=== PATIENT | male | born 1980 | race Caucasian/White ===

== ENCOUNTER 2024-10-18 13:50 | Outpatient (AMB) | payer OTHER, SELFPAY ==
--- OUTSIDE RECORDS SUMMARY | 2024-10-18 14:17 | XMS_ITS | Clinical Summary ---
Author Organization [facility] Address [address] [place] [address] Care Team Providers Care Audiology Technician Name Role Phone Koffi Hensley MD Primary Care Provider [phone] Allergies Active Allergy Reactions Criticality Noted Date Comments Cefaclor Other High 06/08/2002 Cephalosporins Other Low 06/25/2015 Kdc:Bee Venom+Hornet Venom+Phenol Other,Urticarial Rash High 02/28/2024 Prednisone Dizzy/Confused 01/09/2019 Varenicline Other 12/04/2023 Medications * This document contains information received from the source organization and may not represent a complete record from that organization. Ibuprofen (ADVIL,MOTRIN) 800 MG tabletIndications: Neck pain,Cervical radiculopathy Take one tablet (800 mg total) by mouth every 8 (eight) hours if needed for moderate pain. 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 Neurology [address] [facility] [address] [place] [phone] Aguila, Tabby, DO Vertigo (Primary Dx); Nonintractable headache, unspecified chronicity pattern, unspecified headache type; Right facial numbness 10/07/2024 6:15 PM EST Minor Procedure/Test [address] [place] [address] Sai Fish, RAJIV Cervical radiculopathy - REHAB PT (Primary Dx) 09/30/2024 4:45 PM EST Minor Procedure/Test [address] [place] [address] Sai Fish PTA Cervical radiculopathy - REHAB PT (Primary Dx) 09/12/2024 8:45 AM EST Minor Procedure/Test [facility] Orthopedic Surgery [address] [place] [phone] Reinaldo Chen MD Cervical radiculopathy (Primary Dx) 09/07/2024 Orders Only [address] [phone] Ada Spencer, PT 09/04/2024 3:45 PM EST Office Visit [address] [phone] Ada Spencer, PT Cervical radiculopathy - REHAB PT (Primary Dx) 07/24/2024 Orders Only [facility] Orthopedic Surgery [address] [place] [phone] Clem Burleson NP 07/23/2024 Orders Only [facility] Orthopedic Surgery [address] [place] [phone] Clem Burleson NP from Last 3 Months Immunizations Name Administration Dates Next Due COVID-19, mRNA (Moderna Pre Fall 2022) Monovalent, 100 mcg/0.5 ml or 50 mcg/0.25 ml dose 02/05/2021,12/25/2020 IPV 01/03/2005 Influenza,injectable,MDCK, Prsrv Fr,Quad 019,07/24/2018 Tdap 10/05/2021 Social History Tobacco Use Types Packs/Day Years Used Date Smoking Tobacco: Former Cigarettes Smokeless Tobacco: Never Tobacco Cessation:Counseling Given: Not Answered Comments:1 PACK A WEEK Alcohol Use Standard Drinks/Week Comments Not Asked 0 (1 standard drink = 0.6 oz pur e alcohol) Sex and Gender Information Value Date Recorded Sex Assigned at Not on file Legal Sex Male 9:43 PM EDT Gender Identity Not on file Sexual Orientation Not on file Last Filed Vital Signs Vital Sign Reading Time Taken Comments Blood Pressure 117/78 10/10/2024 2:57 PM EST Pulse 64 10/10/2024 2:57 PM EST Temperature 36.8 ??C (98.2 ??F) 09/12/2024 8:43 AM ES T Respiratory Rate - - Oxygen Saturation 99% 07/08/2020 5:21 PM EST Inhaled Oxygen Concentration - - Weight 79.8 kg (176 lb) 11/19/2014 8:06 AM EDT Height 180.3 cm (5' 11 ) 11/19/2014 8:06 AM EDT Body Mass Index 24.55 11/19/2014 8:06 AM EDT Plan of Treatment Upcoming Encounters Date Type Department Care Team (Late st Contact Info) Description 10/21/2024 4:15 PM EST Minor Procedure/Test [facility] [address] [place] [phone] Ada Spencer, PT [address] [place] [address] 2024 [facility] NO APPROVAL NEEDED Clem Burleson NP in [facility] ORTHO SURGERY 11/12/2024 7:45 PM EDT Radiology [facility]. Magnetic Resonance Imaging [address] [place] [address] NAVJOT [phone] AUTHDwaine 10/10/2024 Health Maintenance Due Date Last Done Comments Hep B (1 of 3 - 19+ 3-dose series) 01/06/1999 COVID-19 Vaccine (2023-2 5 season) 2024 02/05/2021, 12/25/2020 Influenza (#1) 2024 06/03/2019, 07/24/2018 Zoster (Shingrix) (1 of 2) 01/06/2030 DTaP/Tdap/Td (2 - Td or Tdap) 10/05/2031 10/05/2021 Eye/Retina Exam Discontinued 07/19/1994 Hepatitis C Screening Completed 09/19/2011 Chest Imaging Discontinued 06/25/2015, 01/31/2012, 03/13/2010 HPV Vaccine Aged Out No longer eligi ble based on patient's age to complete this topic Hep A Aged Out No longer eligi ble based on patient's age to complete this topic Hib Aged Out No longer eligi ble based on patient's age to complete this topic Meningococcal ACWY Aged Out No longer eligible based on patient's age to complete this topic Pneumococcal Aged Out No longer eligi ble based on patient's age to complete this topic Procedures * Due to [place] state law, this organization might not be sharing negative HIV tests. Procedure Name Priority Date/Time Associated Diagnosis Comments INJECTION(S) OF DIAGNOSTIC OR THERAPEUTIC SUSTANCES(S), CERVICAL OR THORACIC W/IMAGE Routine 09/12/2024 10:14 AM EST Cervical radiculopathy from Last 3 Months Insurance [facility] POS Care Teams Audiology Technician Relationship Specialty Start Date End Date Koffi Hensley MD [facility] [address] [place] [phone] PCP - General Family Medicine 07/08/20
--- OUTSIDE RECORDS SUMMARY | 2024-10-18 14:17 | XMS_ITS | Encounter Summary ---
Author Organization [facility] Address [address] [place] [address] Care Team Providers Care Heating Operators Engineer Name Role Phone Martinez Mendoza MD Primary Care Provider [phone] Reason for Referral * Consultation (Urgent) - Pending Review Specialty Diagnoses / Procedures Referred By Contbob t Referred To Contact Otolaryngology Diagnoses Impacted cerumen of right ear Dizziness Taylor Temple NP [address] [place] [address] Phone: tel: fax: Travis Hayes MD [address] [place] [address] Phone: tel: fax: Referral ID Status Reason Start Date Expiration Date Visits Requested Visits Authorized [id number] Pending Review Specialty Services Required 10/04/2024 04/05/2026 6 6 Reason for Visit * Reason Comments Vertigo Encounter Details Date Type Department Care Team (Late st Contact Info) Description 10/04/2024 11:30 AM EST Office Visit [address] Family Medicine Department [address] [place] [phone] Tayolr Temple NP [address] [place] [address] Impacted cerumen of right ear (Primary Dx); Dizziness Social History Tobacco Use Types Packs/Day Years Used Date Smoking Tobacco: Former Cigarettes 1 15 2 - 2017 Smokeless Tobacco: Never Comments:: Alcohol Use Standard Drinks/Week Comments Yes 6 (1 standard drink = 0.6 oz pur e alcohol) [facility] Utilities Answer Date Recorded In the past 12 months has th e electric, gas, oil, or water company threatened to shut off services in your home? No 10/04/2024 Hunger Vital Sign Answer Date Recorded Within the past 12 months, y ou worried that your food would run out before you got the money to buy more. Never true 10/04/19 25 Within the past 12 months, t he food you bought just didn't last and you didn't have money to get more. Never true 10/04/2024 Transportation Answer Date Recorded In the past 12 months, has l ack of reliable transportation kept you from medical appointments, meetings, work or from getting things needed for daily living? No 10/04/2024 Housing Answer Date Recorded Housing Risk Low 2 10/04/2024 Housing Risk Medium Not on file 10/04/2024 Housing Risk High Not on file 10/04/2024 What is your living situation today? [facility] 10/04/2024 Sex and Gender Information Value Date Recorded Sex Assigned at Male 12/04/2023 7:44 AM EDT Legal Sex Male 9:46 AM EDT Gender Identity Not on file Sexual Orientation Not on file documented as of this encounter Last Filed Vital Signs Vital Sign Reading Time Taken Comments Blood Pressure 122/78 10/04/2024 11:34 AM EST Pulse 65 10/04/2024 11:34 AM EST Temperature 36.4 ??C (97.5 ??F) 10/04/2024 11:[address] Respiratory Rate 20 10/04/2024 11:34 AM EST Oxygen Saturation 98% 10/04/2024 11:34 AM EST Inhaled Oxygen Concentration - - Weight 94.3 kg (208 lb) 10/04/2024 11:34 AM EST Height - - Body Mass Index 29.42 12/04/2023 7:50 AM EDT documented in this encounter Patient Instructions * Patient Instructions* Taylor Temple NP - 10/04/2024 12:09 PM EST DEBROX DROP FOR EAR WAX nightly for the weekend documented in this encounter Progress Notes * Taylor Temple NP - 10/04/2024 3:04 PM EST Progress Note Assessment & Plan Impacted cerumen of right ear The right ear is significantly occluded with cerumen, which may be contributing to his vertigo. He is advised to use ntqv-oto-twgffzh Debrox drops for approximately one week. An ENT consultation withDr. Hayes has been arranged for potential ear irrigation Orders: Ambulatory referral to ENT; Future Dizziness The vertigo could be related to the neck issues or the ear blockage. A prescription for meclizine has been provided, to be taken up to three times daily as needed for dizziness. He is informed that meclizine may induce drowsiness. If meclizine is not covered by his insurance, he can purchase Dramamine over the counter. If his condition acutely deteriorates over the weekend, he should seek immediate medical attention at the ER. Orders: Ambulatory referral to ENT; Future meclizine (ANTIVERT) 25 mg tablet; Take 1 tablet (25 mg total) by mouth 3 times a day as needed fordizziness. I have seen and evaluated Jose Pizarro and will be providing ongoing care and management for their medical conditions. Return for Annual physical. See orders, meds, patient instructions and follow up for plan. Pt aware and agreeable to plan of care. Follow up as scheduled and call with any questions or concerns. Portions of this note were created with voice recognition software. As such, please excuse any wordselection errors, misspellings, or grammatical errors. Efforts were made to proofread and correct this note prior to signing. If there are any questions, please don't hesitate to contact the office. The provider would like to use a new technology product that will automatically document your encounter based on a recording of your conversation today. This will allow them to spend more time focused on you. Is it okay with you if we record your conversation? Patient consents to be recorded by [employer] system. PROGRESS NOTE Patient ID: Jose is a 44 y.o. male HPI: History of Present Illness The patient is a 44-year-old male who presents today for concerns of right ear blockage and vertigo. He has been experiencing neck issues for the past decade, which were initially alleviated by a steroid injection. However, the pain recurred a few months ago, prompting him to seek consultation from a hr specialist, Dr. Clem Vides. They decided on another round of steroid injection in his spine at C4-C7. The pain was severe, radiating to his left side, causing numbness and a sensation jacob to pins and needles. A recent steroid injection at the C4-C7 level has resolved the numbness, but the neckpain has returned over the past few days. He reports no current numbness or tingling on his left side. He is right-handed and reports no fevers. He has been attending physical therapy sessions since last Monday, with four more sessions scheduled. His last session was this past Monday. He has an upcoming appointment with a neurologist, Dr. Tabby Kang, next week for his dizziness and a second opinionon his neck. Upon awakening yesterday, he experienced numbness on one side of his face and the back of his head,accompanied by a severe headache and vertigo, which has slightly improved today. The symptoms were so debilitating that he was unable to drive yesterday. He also reports episodes of dizziness that began two months ago, coinciding with the onset of his neck pain. He has not taken any medication for his vertigo or dizziness. He recalls an incident approximately 1.5 years ago when he was mowing the lawn and experienced severe neck muscle tightness, resulting in a fall and subsequent emergency roomvisit due to dizziness. He attempted to go to work yesterday despite the numbness in his head. He reports no previous episodes of vertigo as severe as the current one. He has been experiencing severe earaches on his right side during these dizzy spells. During his last physical examination, Dr. Hensley noted a small amount of earwax in his right ear. He reports no hearing loss in his right ear. He has had a couple of instances where he felt like he had an ear infection on that side, along with a sore throat. The following portions of the chart were reviewed this encounter and updated as appropriate: Tobacco Allergies Meds Problems Med Hx Surg Hx Fam Hx Current Medications (Taking) as of 10/04/2024 EPINEPHrine (EPIPEN JR) 0.15 mg/0.3 mL injection syringe EpiPen 2-Chong 0.3 MG/0.3ML Injection Solution Auto-injector INJECT 1 APPLICATION INTRAMUSCULARLY, NEEDED Quantity: 2; Refills: 0 SHIVANI COSTELLO MD; Started Active Review of Systems Constitutional: Negative for chills, fatigue and fever. Respiratory: Negative for shortness of breath. Cardiovascular: Negative for chest pain and chest pressure. Objective BP 122/78 (BP Location: Right arm, Patient Position: Sitting) Pulse 65 Temp 36.4 ??C (97.5 ??F)(Temporal) Resp 20 Wt 94.3 kg (208 lb) SpO2 98% BMI 29.42 kg/m?? Physical Exam Vitals reviewed. Constitutional: General: He is not in acute distress. Appearance: Normal appearance. He is not ill-appearing, toxic-appearing or diaphoretic. HENT: Right Ear: Ear canal and external ear normal. There is impacted cerumen. Left Ear: Tympanic membrane, ear canal and external ear normal. Nose: Nose normal. Mouth/Throat: Mouth: Mucous membranes are moist. Pharynx: Oropharynx is clear. Cardiovascular: Rate and Rhythm: Normal rate and regular rhythm. Heart sounds: Normal heart sounds. Pulmonary: Effort: Pulmonary effort is normal. Breath sounds: Normal breath sounds. Musculoskeletal: General: Normal range of motion. Cervical back: Normal range of motion. Comments: FROM of neck Neurological: General: No focal deficit present. Mental Status: He is alert and oriented to person, place, and time. Psychiatric: Mood and Affect: Mood normal. Behavior: Behavior normal. documented in this encounter Plan of Treatment Upcoming Encounters Date Type Department Care Team (Late st Contact Info) Description 11/05/2024 7:30 AM EDT Telehealth [address] Pulmonology [address] [place] [phone] Sylvester Stevenson MD [address] [place] [address] 12/17/2024 2:30 PM EDT Office Visit [facility] [address] [facility] Family Medicine Department [address] [place] [phone] Martinez Mendoza MD [address] [place] [address] 12/19/2024 2:30 PM EDT Office Visit [facility] D[facility]atology [facility] 4th Floor [address] [facility], [place] [address] Cloth Booker: Lisa Huff PA [address] [place] [address] Scheduled Referrals Name Type Priority Associated Diagnoses Order Schedule Ambulatory referral to ENT Outpatient Referral Routine Impacted cerumen of right ear Dizziness Expected: 10/04/2024, Expires: 04/03/2025 documented as of this encounter Visit Diagnoses Diagnosis Impacted cerumen of right ear- Primary Impacted cerumen Dizziness Dizziness and giddiness documented in this encounter Care Teams Heating Operators Engineer Relationship Specialty Start Date End Date Martinez Mendoza MD [address] [place] [address] PCP - General Family Medicine 10/04/24 documented as of this encounter
--- OUTSIDE RECORDS SUMMARY | 2024-10-18 14:17 | XMS_ITS | Encounter Summary ---
Author Organization [facility] Address [address] [place] [address] Care Team Providers Care Classics Teacher Name Role Phone Koffi Hensley MD Primary Care Provider [phone] Reason for Visit * Reason Onset Date Comments Physical Therapy 10/14/2024 Encounter Details Date Type Department Care Team (Late st Contact Info) Description 10/14/2024 4:45 PM EST Minor Procedure/Test [facility] [address] [place] [address] Sai Fish TELE TECH [address] [place] [address] Cervical radiculopathy - REHAB PT (Primary Dx) Social History Tobacco Use Types Packs/Day Years Used Date Smoking Tobacco: Former Cigarettes Smokeless Tobacco: Never Comments:1 PACK A WEEK Alcohol Use Standard Drinks/Week Comments Not Asked 0 (1 standard drink = 0.6 oz pur e alcohol) Sex and Gender Information Value Date Recorded Sex Assigned at Not on file Legal Sex Male 9:43 PM EDT Gender Identity Not on file Sexual Orientation Not on file documented as of this encounter Progress Notes * Sai Fish PTA - 10/14/2024 4:45 PM EST Jose Campo Juarez is a 44 y.o. male DOS: 10/14/2024 Visit # 4 For treatment of: ICD-10-CM 1. Cervical radiculopathy - REHAB PT M54.12 PRECAUTIONS / CONTRAINDICATIONS: standard Patient / Family goals: decrease pain and numbness Date of Onset: 2-3 months Rigger Chief not necessary for this visit. No exam or procedure involving the breast, genital or rectal area is anticipated. SUBJECTIVE: 2 identifier confirmed: YES Patient stated Neurologist and ENT were saying different things for my dizziness. The neck isn't bad. It's better than last week. It's a little stiff. No radiating numbness. Pain Scale: Now: 1-2/10 OBJECTIVE: Patient performed and/or progressed the following exercises: In sitting: - Chin tuck 5s hold x 10 - Cervical rotation iso vs self 5s hold x 6 each side - Cervical side bent iso vs self 5s hold x 6 each side In standing: - Open book along wall x 10 each side - Alt shoulder taps from plank position x 10 each side - Scap push up on wall x 10 - Rows vs blue band x 10, 2 sets - Shoulder ext vs blue band x 10, 2 sets - Lat pulldown vs blue band x 10, 2 sets - Hip hinge/squat lifting milk crate with 2 sand bags inside x 5 HEP: Access Code: [email or web address] URL: [email or web address]/ Exercises - Shoulder External Rotation and Scapular Retraction with Resistance - 1 x daily - 1-2 sets - 3-5 reps - 20 hold - green resistance band - Standing Isometric Cervical Extension and Bilateral Shoulder Flexion with Ball at Wall - 1-2 x daily - 1 sets - 10 reps - Row with Rotation - 1 x daily - 1-2 sets - 10 reps - green resistance band - Seated Thoracic Flexion and Rotation with Arms Crossed - 2 x daily - 1 sets - 10 reps - Shoulder extension with resistance - Neutral - 1 x daily - 1-2 sets - 3 reps - 20 hold - green resistance band Timed Code Treatment Minutes 38 Total Treatment Time Minutes 38 ASSESSMENT: Patient tolerated treatment well. Patient has improvement with symptoms compared to last week. Patient notes his dizziness symptoms are improving and that he mostly has tight neck muscles. PLAN: Continue to follow the plan of care per Primary PT. Therapeutic Exercise L median nerve glides Stretching - pecs Deep cervical flexor strengthening - likely need to start with isometrics Mid back strengthening for posture L rotator cuff strengthening/ scapular strengthening Patient Education/ Self - Care HEP Posture/ body mechanics, work space ergonomics Driving Avoiding excessive overhead work Keeping neutral spine with tasks at work Primary PT: Ada Spencer, PT, DPT License # [id number] Sai Fish PTA [place] License #[id number] documented in this encounter Plan of Treatment Upcoming Encounters Date Type Department Care Team (Late st Contact Info) Description 10/21/2024 4:15 PM EST Minor Procedure/Test [facility] [address] [place] [phone] Ada Spencer, PT [address] [place] [address] 2024 [facility] NO APPROVAL NEEDED Clem Burleson NP in [facility] ORTHO SURGERY 11/12/2024 7:45 PM EDT Radiology [facility] [address] [place] [address] NAVJOT [phone] AUTHDwaine 10/10/2024 documented as of this encounter Visit Diagnoses Diagnosis Cervical radiculopathy - REHAB PT- Primary Brachial neuritis or radiculitis nos documented in this encounter Care Teams Classics Teacher Relationship Specialty Start Date End Date Koffi Hensley MD [facility] [address] [place] [phone] PCP - General Family Medicine 07/08/20 documented as of this encounter
--- OUTSIDE RECORDS SUMMARY | 2024-10-18 14:17 | XMS_ITS | Encounter Summary ---
Author Organization [facility] Address [address] [place] [address] Care Team Providers Care Train Brakeman Name Role Phone Martinez Mendoza MD Primary Care Provider Reason for Visit * Reason Onset Date Comments Vertigo 10/04/2024 Encounter Details Date Type Department Care Team (Late st Contact Info) Description 10/04/[address] Family Medicine Department [address] [place] [phone] Koffi Hensley MD [address] [place] [address] Vertigo Social History Tobacco Use Types Packs/Day Years Used Date Smoking Tobacco: Former Cigarettes 1 15 - 2017 Smokeless Tobacco: Never Comments:: Alcohol Use Standard Drinks/Week Comments Yes 6 (1 standard drink = 0.6 oz pur e alcohol) [facility] Utilities Answer Date Recorded In the past 12 months has th e [employer], gas, oil, or water [employer] threatened to shut off services in your [...] on file documented as of this encounter Miscellaneous Notes * Telephone Encounter - Jana Latif LPN - 10/04/2024 10:04 AM EST Contacted pt offered apt today at 11:30 pt agreeable * Telephone Encounter - Carla Mullins - 10/04/2024 9:56 AM EST Pt lmtr [facility] @ 9;44 stating he has very bad vertigo and states he has a blockage in his right ear documented in this encounter Plan of Treatment Upcoming Encounters Date Type Department Care Team (Late st Contact Info) Description 11/05/2024 7:30 AM EDT Telehealth [facility] [address] [place] Pulmonology [address] [address] Sylvester Stevenson MD [address] [address] 12/17/2024 2:30 PM EDT Office Visit [address] Family Medicine Department [address] [place] [phone] Martinez Mendoza MD [address] [place] [address] 12/19/2024 2:30 PM EDT Office Visit [facility] Dermatology Clinic 4th Floor [address] [facility], [place] [address] Stitcher Tape Controlled Machine: Lisa Huff PA [address] [place] [address] documented as of this encounter Visit Diagnoses Not on filedocumented in this encounter Care Teams Train Brakeman Relationship Specialty Start Date End Date Martinez Mendoza MD [address] [place] [address] PCP - General Family Medicine 10/04/24 documented as of this encounter
--- OUTSIDE RECORDS SUMMARY | 2024-10-18 14:17 | XMS_ITS | Encounter Summary ---
Author Organization [facility] Address [address] [place] [address] Care Team Providers Care Residential Appliance Repair Technician Name Role Phone Martinez Mendoza MD Primary Care Provider Encounter Details Date Type Department Care Team (Late st Contact Info) Description 10/04/2024 Orders Only [address] Family Medicine Department [address] [place] [phone] Taylor Temple NP [address] [place] [address] Healthcare maintenance Social History Tobacco Use Types Packs/Day Years Used Date Smoking Tobacco: Former Cigarettes 1 15 2017 Smokeless Tobacco: Never Comments:: Alcohol Use Standard Drinks/Week Comments Yes 6 (1 standard drink = 0.6 oz pur e alcohol) [facility] Utilities Answer Date Recorded In the past 12 months has e [employer], gas, oil, or water [employer] threatened to shut off services in your [...] on file documented as of this encounter Plan of Treatment Upcoming Encounters Date Type Department Care Team (Late st Contact Info) Description 11/05/2024 7:30 AM EDT Telehealth [facility] [address] [place] Pul[facility] 85 [facility] [address] [place] [address] Sylvester Stevenson MD [address] [address] 12/17/2024 2:30 PM EDT Office Visit [address] Family Medicine Department [address] [place] [phone] Martinez Mendoza MD [address] [place] [address] 12/19/2024 2:30 PM EDT Office Visit [facility] 4th Floor [address] [facility], [place] [address] Cost Reduction Engineer: Lisa Huff PA [address] [place] [address] documented as of this encounter Results * Due to [place] state law, this organization might not be sharing negative HIV tests. * (ABNORMAL) Vitamin D, 25-Hydroxy, Total, Immunoassay (10/10/2024 1:36 PM EST) Vitamin D 25-OH 19.90(L) 30.00 - 80.00 ng/mL 10/10/2024 7:35 PM EST [facility] Blood Structure of peripheral vein / Unknown Venipuncture / Unknown 10/10/2024 1:36 PM EST 10/10/2024 1:36 PM EST [facility] HUMAN RESOURCES TRAINING MANAGER LAB BLOOD ORDERABLES Final R esult Performing Organization Address [facility] Co de Phone Number [facility] [address] [address], [place] [phone] * TSH Reflex Free T4 (10/10/2024 1:36 PM EST) TSH 2.610 0.270 - 4.200 uIU/mL 10/10/2024 7:24 PM EST [facility] Blood Structure of peripheral vein / Unknown Venipuncture / Unknown 10/10/2024 1:36 PM EST 10/10/2024 1:36 PM EST [facility] HUMAN RESOURCES TRAINING MANAGER LAB BLOOD ORDERABLES Final R esult Performing Organization Address City/[facility] Co de Phone Number [facility] [address] [address], [place] [phone] * CBC Auto Differential (10/10/2024 1:36 PM EST) WBC 5.1 4.8 - 10.8 10*3/uL 10/10/2024 6:54 PM EST [facility] RBC 4.85 4.70 - 6.10 10*6/uL 10/10/2024 6:54 PM EST [facility] Hemoglobin 15.2 13.7 - 16.5 g/dL 10/10/2024 6:54 PM EST [facility] Hematocrit 43.3 40.5 - 48.5 % 10/10/2024 6:54 PM EST [facility] MCV 89.3 80.0 - 94.0 fL 10/10/2024 6:54 PM EST [facility] MCH 31.3 26.0 - 34.0 pg 10/10/2024 6:54 PM EST [facility] MCHC 35.1 31.0 - 36.0 g/dL 10/10/2024 6:54 PM EST [facility] RDW 12.0 12.0 - 15.0 % 10/10/2024 6:54 PM EST [facility] RDW Standard Deviation 39.2 35.1 - 43.9 fL 10/10/2024 6:54 PM EST [facility] Platelets 277 140 - 440 10*3/uL 10/10/2024 6:54 PM [facility] MPV 10.6 9.4 - 12.4 fL 10/10/2024 6:54 PM EST [facility] Neutrophil % 50.2 50.0 - 75.0 % 10/10/2024 6:54 PM EST [facility] Immature Grans % 0.2 0.0 - 0.9 % 10/10/2024 6:54 PM EST [facility] Lymphocyte % 34.8 20.0 - 44.0 % 10/10/2024 6:54 PM EST [facility] Monocyte % 11.5 0.0 - 14.0 % 10/10/2024 6:54 PM EST [facility] Eosinophil % 2.7 0.0 - 5.0 % 10/10/2024 6:54 PM EST [facility] Basophil % 0.6 0.0 - 2.0 % 10/10/2024 6:54 PM EST [facility] Neutrophil # 2.56 1.80 - 7.70 10*3/uL 10/10/2024 6:54 PM EST [facility] Immature Grans # <0.03 0.00 - 0.03 10*3/uL 10/10/2024 6:54 PM EST [facility] Lymphocyte # 1.80 1.00 - 4.75 10*3/uL 10/10/2024 6:54 PM EST [facility] Monocyte # 0.60 0.00 - 0.60 10*3/uL 10/10/2024 6:54 PM EST [facility] Eosinophil # 0.10 0.00 - 0.80 10*3/uL 10/10/2024 6:54 PM EST [facility] Basophil # <0.03 0.00 - 0.20 10*3/uL 10/10/2024 6:54 PM EST [facility] nRBC % 0.0 0 - 0 /100 WBCs 10/10/2024 6:54 PM EST [facility] nRBC # <0.01 0.00 - 0.13 10*3/uL 10/10/2024 6:54 PM EST [facility] Blood Structure of peripheral vein / Unknown Venipuncture / Unknown 10/10/2024 1:36 PM EST 10/10/2024 1:36 PM EST [facility] LAB BLOOD ORDERABLES [facility] Performing Organization Address [facility] de Phone Number [facility] [address] [address], [place] [phone] * Hemoglobin A1c (10/10/2024 1:36 PM EST) Pathologist [facility] Hemoglobin A1c 5.6 4.0 - 5.7 % 10/10/2024 7:13 PM EST [facility] Estimated Average Glucose 114 mg/dL 10/10/2024 7:13 PM EST [facility] Blood Structure of peripheral vein / Unknown Venipuncture / Unknown 10/10/2024 1:36 PM EST 10/10/2024 1:36 PM EST [facility] LAB BLOOD ORDERABLES Final R [facility] Performing Organization Address City/[facility] Co de Phone Number [facility] [address] [address], [place] [phone] * Basic Metabolic Panel (10/10/2024 1:36 PM EST) Pathologist [facility] NA 141 136 - 145 mmol/L 10/10/2024 7:24 PM EST [facility] K 4.7 3.5 - 5.1 mmol/L 10/10/2024 7:24 PM EST [facility] Cl 103 98 - 109 mmol/L 10/10/2024 7:24 PM EST [facility] CO2 29 22 - 32 mmol/L 10/10/2024 7:24 PM EST [facility] BUN 17 6 - 20 mg/dL 10/10/2024 7:24 PM EST [facility] Creatinine 1.02 0.50 - 1.12 mg/dL 10/10/2024 7:24 PM EST [facility] Glucose 81 60 - 99 mg/dL 10/10/2024 7:24 PM EST [facility] Calcium 9.4 8.4 - 10.4 mg/dL 10/10/2024 7:24 PM EST [facility] Anion Gap 14 >=0 10/10/2024 7:24 PM EST [facility] eGFR >90 >=60 mL/min/1. 73m2 10/10/2024 7:24 PM EST [facility] Comment:The estimated glomer ular filtration rate (eGFR) is calculated using a new formula developed by the NKF-ASN task force to eliminate race-based correction factors. The new formula uses serum/plasma creatinine, age, and gender to determine eGFR. A value below 60mls/min might indicate kidney disease and will be flagged. For additional information, see Rosado et al, Am J Kidney Dis. 2021;79(2):268- 288, A Unifying Approach for GFR estimation: Recommendations of the NKF-ASN Task Force on Reassessing the Inclusion of Race in Diagnosing Kidney Disease . Blood Structure of peripheral vein / Unknown Venipuncture / Unknown 10/10/2024 1:36 PM EST 10/10/2024 1:36 PM EST us Taylor Temple HUMAN RESOURCES TRAINING MANAGER LAB BLOOD ORDERABLES Final R esult [facility] [address] [place] [address], [place] [phone] * Hepatic Function Panel (10/10/2024 1:36 PM EST) Total Protein 7.1 6.6 - 8.7 g/dL 10/10/2024 7:24 PM EST [facility] Albumin 4.5 3.5 - 5.0 g/dL 10/10/2024 7:24 PM EST [facility] Globulin, Total 2.6 2.1 - 4.2 g/dL 10/10/2024 7:24 PM EST [facility] Bilirubin, Total 0.4 0.2 - 1.2 mg/dL 10/10/2024 7:24 PM EST [facility] Bilirubin, Direct 0.2 <=0.3 mg/dL 10/10/2024 7:24 PM EST [facility] Alkaline Phosphatase 76 40 - 129 U/L 10/10/2024 7:24 PM EST [facility] AST 29 0 - 40 U/L 10/10/2024 7:24 PM EST [facility] ALT 29 <=41 U/L 10/10/2024 7:24 PM EST [facility] Bilirubin, Indirect 0.20 <=0.70 mg/dL 10/10/2024 7:24 PM EST [facility] A/G Ratio 1.7 1.5 - 3.0 10/10/2024 7:24 PM EST [facility] Blood Structure of peripheral vein / Unknown Venipuncture / Unknown 10/10/2024 1:36 PM EST 10/10/2024 1:36 PM EST Taylor Temple HUMAN RESOURCES TRAINING MANAGER LAB BLOOD ORDERABLES Final R esult [facility] [address] [place] [address], [place] [phone] * Lipid Panel w/Reflex to Direct LDL (10/10/2024 1:36 PM EST) Pathologist [facility] Cholesterol 194 mg/dL 10/10/2024 7:24 PM EST [facility] Comment: DESIRABLE: <200 mg/dL BORDERLINE HIGH: 200-239 mg/dL HIGH: >239 mg/dL Triglycerides 233 mg/dL 10/10/2024 7:24 PM EST [facility] Comment: NORMAL: <150 mg/dL BORDERLINE HIGH: 150-199 mg/dL HIGH: 200-499 mg/dL VERY HIGH >499 mg/dL Cholesterol, HDL 44 mg/dL 10/10/19 7:24 PM EST [facility] Comment: DESIRABLE: >60 mg/dL BORDERLINE: 40-59 mg/dL UNDESIRABLE: <40 mg/dL LDL Cholesterol 103 mg/dL 7:24 PM EST [facility] Comment: OPTIMAL: <100 mg/dL NEAR OPTIMAL: <130 mg/dL BORDERLINE HIGH: 130-159 mg/dL HIGH: 160-189 mg/dL VERY HIGH: >189 mg/dL VLDL 46.6 mg/dL 10/10/2024 7:24 PM EST [facility] Cholesterol/HDL Ratio 4.4 10/10/2024 7:24 PM EST [facility] Blood Structure of peripheral vein / Unknown Venipuncture / Unknown 10/10/2024 1:36 PM EST 10/10/2024 1:36 PM EST us [facility] HUMAN RESOURCES TRAINING MANAGER LAB BLOOD ORDERABLES Final R esult Performing Organization Address City/State/[facility] Co de Phone Number [facility] [address] [address], documented in this encounter Visit Diagnoses Diagnosis Healthcare maintenance documented in this encounter Care Teams Residential Appliance Repair Technician Relationship Specialty Start Date End Date Martinez Mendoza MD [address] [place] [address] PCP - General Family Medicine 10/04/24 documented as of this encounter
--- OUTSIDE RECORDS SUMMARY | 2024-10-18 14:17 | XMS_ITS | Encounter Summary ---
Author Organization [facility] Address [address] [place] [address] Care Team Providers Care Credit Collection Specialist Name Role Phone Martinez Mendoza MD Primary Care Provider Encounter Details Date Type Department Care Team (Late st Contact Info) Description 10/07/2024 Retrevohart Message [place] [id number] [address] [facility] Family Medicine Department [address] [place] [phone] Taylor Temple NP [address] [place] [address] Ent Social History Tobacco Use Types Packs/Day Years Used Date Smoking Tobacco: Former Cigarettes 1 15 2017 Smokeless Tobacco: Never Comments:: Alcohol Use Standard Drinks/Week Comments Yes 6 (1 standard drink = 0.6 oz pur e alcohol) [facility] Utilities Answer Date Recorded In the past 12 months has e [employer], gas, oil, or water [employer] threatened to shut off services in your [...] Info) Description 11/05/2024 7:30 AM EDT Telehealth [facility] [address] [place] [facility] 85 [facility] [address] [place] [address] Sylvester Stevenson MD [address] [address] 12/17/2024 2:30 PM EDT Office Visit [facility] 61 [facility] Family Medicine Department [address] [place] [phone] Martinez Mendoza MD [address] [place] [address] 12/19/2024 2:30 PM EDT Office Visit [facility] 4th Floor [address] [facility], [place] [address] Grant Administrator: Lisa Huff PA [address] [place] [address] documented as of this encounter Visit Diagnoses Not on filedocumented in this encounter Care Teams Credit Collection Specialist Relationship Specialty Start Date End Date Martinez Mendoza MD [address] [place] [address] PCP - General Family Medicine 10/04/24 documented as of this encounter
--- OUTSIDE RECORDS SUMMARY | 2024-10-18 14:17 | XMS_ITS | Encounter Summary ---
Author Organization [facility] Address [address] [place] [address] Care Team Providers Care Brand Strategy Manager Name Role Phone Martinez Mendoza MD Primary Care Provider [phone] Encounter Details Date Type Department Care Team (Late st Contact Info) Description 10/10/2024 1:35 PM EST Lab [facility] Site Department [address] [place] [address] Healthcare maintenance Social History Tobacco Use Types Packs/Day Years Used Date Smoking Tobacco: Former Cigarettes 1 15 2 - 2018 Smokeless Tobacco: Never Comments:: Alcohol Use Standard Drinks/Week Comments Yes 6 (1 standard drink = 0.6 oz pur e alcohol) [facility] Utilities Answer Date Recorded In the past [...] Info) Description 11/05/2024 7:30 AM EDT Telehealth [facility] [address] [place] [address] 85 [facility] [address] [place] [address] Sylvester Stevenson MD [address] [address] 12/17/2024 2:30 PM EDT Office Visit [address] Family Medicine Department [address] [place] [phone] Martinez Mendoza MD [address] [place] [address] 12/19/2024 2:30 PM EDT Office Visit [facility] 4th Floor 281 [facility], [place] [address] Manufacturing Engineer Assembly: Lisa Huff PA [address] [place] [address] documented as of this encounter Procedures * Due to [place] state law, this organization might not be sharing negative HIV tests. Procedure Name Priority Date/Time Associated Diagnosis Comments TSH REFLEX FREE T4 Routine 10/10/2024 1: 36 PM EST Healthcare maintenance LIPID PANEL W/REFLEX TO DIRECT LDL Routine 10/10/2024 1:36 PM EST Healthcare maintenance CBC AUTO DIFFERENTIAL Routine 10/10/2024 1:36 PM EST Healthcare maintenance VITAMIN D, 25-HYDROXY, TOTAL, IMMUNOASSAY Routine 10/10/2024 1:36 PM EST Healthcare maintenance HEMOGLOBIN A1C Routine 10/10/2024 1:36 PM EST Healthcare maintenance HEPATIC FUNCTION PANEL Routine 10/10/2024 1:36 PM EST Healthcare maintenance BASIC METABOLIC PANEL Routine 10/10/2024 1:36 PM EST Healthcare maintenance documented in this encounter Results * Due to [place] state law, this organization might not be sharing negative HIV tests. * (ABNORMAL) Vitamin D, 25-Hydroxy, Total, Immunoassay (10/10/2024 1:36 PM EST) Vitamin D 25-OH 19.90(L) 30.00 - 80.00 ng/mL 10/10/2024 7:35 PM EST [facility] Blood Structure of peripheral vein / Unknown Venipuncture / Unknown 10/10/2024 1:36 PM EST 10/10/2024 1:36 PM EST [facility] GREASE REMOVER LAB BLOOD ORDERABLES Final R esult Performing Organization Address City/[facility]/ZIP Co de Phone Number [facility] [address] [place] [address], [place] [phone] * TSH Reflex Free T4 (10/10/2024 1:36 PM EST) TSH 2.610 0.270 - 4.200 uIU/mL 10/10/2024 7:24 PM EST [facility] Blood Structure of peripheral vein / Unknown Venipuncture / Unknown 10/10/2024 1:36 PM EST 10/10/2024 1:36 PM EST [facility] GREASE [employer]OVER LAB BLOOD ORDERABLES Final R esult Performing Organization Address City/[facility]/ZIP Co de Phone Number [facility] [address] [place] [address], [place] [phone] * CBC Auto Differential (10/10/2024 1:36 PM EST) [facility] WBC 5.1 4.8 - 10.8 10*3/uL 10/10/2024 6:54 PM EST [facility] RBC 4.85 4.70 - 6.10 10*6/uL 10/10/2024 6:54 PM EST [facility] Hemoglobin 15.2 13.7 - 16.5 g/dL 10/10/2024 6:54 PM EST [facility] Hematocrit 43.3 40.5 - 48.5 % 10/10/2024 6:54 PM EST [facility] MCV 89.3 80.0 - 94.0 fL 10/10/2024 6:54 PM EST [facility] MCH 31.3 26.0 - 34.0 pg 10/10/2024 6:54 PM EST [facility] MCHC 35.1 31.0 - 36.0 g/dL 10/10/2024 6:54 PM EST [facility] RDW 12.0 12.0 - 15.0 % 10/10/2024 6:54 PM EST [facility] RDW Standard Deviation 39.2 35.1 - 43.9 fL 10/10/2024 6:54 PM EST [facility] Platelets 277 140 - 440 10*3/uL 10/10/2024 6:54 PM EST [facility] MPV 10.6 9.4 - 12.4 fL 10/10/2024 6:54 PM EST [facility] Neutrophil % 50.2 50.0 - 75.0 % 10/10/2024 6:54 PM EST [facility] Immature Grans % 0.2 0.0 - 0.9 % 10/10/2024 6:54 PM EST [facility] Lymphocyte % 34.8 20.0 - 44.0 % 10/10/2024 6:54 PM EST [facility] Monocyte % 11.5 0.0 - 14.0 % 10/10/2024 6:54 PM EST [facility] Eosinophil % 2.7 0.0 - 5.0 % 10/10/2024 6:54 PM EST [facility] Basophil % 0.6 0.0 - 2.0 % 10/10/2024 6:54 PM EST [facility] Neutrophil # 2.56 1.80 - 7.70 10*3/uL 10/10/2024 6:54 PM EST [facility] Immature Grans # <0.03 0.00 - 0.03 10*3/uL 10/10/2024 6:54 PM EST [facility] Lymphocyte # 1.80 1.00 - 4.75 10*3/uL 10/10/2024 6:54 PM EST [facility] Monocyte # 0.60 0.00 - 0.60 10*3/uL 10/10/2024 6:54 PM EST [facility] Eosinophil # 0.10 0.00 - 0.80 10*3/uL 10/10/2024 6:54 PM EST [facility] Basophil # <0.03 0.00 - 0.20 10*3/uL 10/10/2024 6:54 PM EST [facility] nRBC % 0.0 0 - 0 /100 WBCs 10/10/2024 6:54 PM EST [facility] nRBC # <0.01 0.00 - 0.13 10*3/uL 10/10/2024 6:54 PM EST [facility] Blood Structure of peripheral vein / Unknown Venipuncture / Unknown 10/10/2024 1:36 PM EST 10/10/2024 1:36 PM EST us Taylor Temple [employer] LAB BLOOD ORDERABLES Final R esult [facility] [address] [address], * Hemoglobin A1c (10/10/2024 1:36 PM EST) Hemoglobin A1c 5.6 4.0 - 5.7 % 10/10/2024 7:13 PM EST [facility] Estimated Average Glucose 114 mg/dL 10/10/2024 7:13 PM EST [facility] Blood Structure of peripheral vein / Unknown Venipuncture / Unknown 10/10/2024 1:36 PM EST 10/10/2024 1:36 PM EST [facility] BLOOD ORDERABLES Final R esult [facility] [address] [facility] [address] [place] [address], * Basic Metabolic Panel (10/10/2024 1:36 PM EST) NA 141 136 - 145 mmol/L 10/10/2024 7:24 PM EST [facility] K 4.7 3.5 - 5.1 mmol/L 10/10/2024 7:24 PM EST [facility] Cl 103 98 - 109 mmol/L 10/10/2024 7:24 PM EST [facility] CO2 29 22 - 32 mmol/L 10/10/2024 7:24 PM EST [facility] BUN 17 6 - 20 mg/dL 10/10/2024 7:24 PM EST [facility] Creatinine 1.02 0.50 - 1.12 mg/dL 10/10/2024 7:24 PM EST [facility] Glucose 81 60 - 99 mg/dL 10/10/2024 7:24 PM EST [facility] Calcium 9.4 8.4 - 10.4 mg/dL 10/10/2024 7:24 PM EST [facility] Anion Gap 14 >=0 10/10/2024 7:24 PM EST [facility] eGFR >90 >=60 mL/min/1. 73m2 10/10/2024 7:24 PM EST [facility] Comment:The estimated glomer ular filtration rate (eGFR) is calculated using a new formula developed by the NKF-ASN task force to eliminate race-based correction factors. The new formula uses serum/plasma creatinine, age, and gender to determine eGFR. A value below 60mls/min might indicate kidney disease and will be flagged. For additional information, see Ashlee et al, Am J Kidney Dis. 2021;79(2):268- 288, A Unifying Approach for GFR estimation: Recommendations of the NKF-ASN Task Force on Reassessing the Inclusion of Race in Diagnosing Kidney Disease . Blood Structure of peripheral vein / Unknown Venipuncture / Unknown 10/10/2024 1:36 PM EST 10/10/2024 1:36 PM EST us Taylor Temple [employer] LAB BLOOD ORDERABLES Final R esult [facility] [address] [place] [address] [address] [place] [address], [place] [phone] * Hepatic Function Panel (10/10/2024 1:36 PM EST) Total Protein 7.1 6.6 - 8.7 g/dL 10/10/2024 7:24 PM EST [facility] Albumin 4.5 3.5 - 5.0 g/dL 10/10/2024 7:24 PM EST [facility] Globulin, Total 2.6 2.1 - 4.2 g/dL 10/10/2024 7:24 PM EST [facility] Bilirubin, Total 0.4 0.2 - 1.2 mg/dL 10/10/2024 7:24 PM EST [facility] Bilirubin, Direct 0.2 <=0.3 mg/dL 10/10/2024 7:24 PM EST [facility] Alkaline Phosphatase 76 40 - 129 U/L 10/10/2024 7:24 PM EST [facility] AST 29 0 - 40 U/L 10/10/2024 7:24 PM EST [facility] ALT 29 <=41 U/L 10/10/2024 7:24 PM EST [facility] Bilirubin, Indirect 0.20 <=0.70 mg/dL 10/10/2024 7:24 PM EST [facility] A/G Ratio 1.7 1.5 - 3.0 10/10/2024 7:24 PM EST [facility] Blood Structure of peripheral vein / Unknown Venipuncture / Unknown 10/10/2024 1:36 PM EST 10/10/2024 1:36 PM EST Taylor Temple [employer] LAB BLOOD ORDERABLES Final R esult [facility] [address] [facility] [address] [place] [address], [place] [phone] * Lipid Panel w/Reflex to Direct LDL (10/10/2024 1:36 PM EST) Cholesterol 194 mg/dL 10/10/2024 7:24 PM EST [facility] Comment: DESIRABLE: <200 mg/dL BORDERLINE HIGH: 200-239 mg/dL HIGH: >239 mg/dL Triglycerides 233 mg/dL 10/10/2024 7:24 PM EST [facility] Comment: NORMAL: <150 mg/dL BORDERLINE HIGH: 150-199 mg/dL HIGH: 200-499 mg/dL VERY HIGH >499 mg/dL Cholesterol, HDL 44 mg/dL 10/10/19 7:24 PM EST [facility] Comment: DESIRABLE: >60 mg/dL BORDERLINE: 40-59 mg/dL UNDESIRABLE: <40 mg/dL LDL Cholesterol 103 mg/dL 7:24 PM EST [facility] Comment: OPTIMAL: <100 mg/dL NEAR OPTIMAL: <130 mg/dL BORDERLINE HIGH: 130-159 mg/dL HIGH: 160-189 mg/dL VERY HIGH: >189 mg/dL VLDL 46.6 mg/dL 10/10/2024 7:24 PM EST [facility] Cholesterol/HDL Ratio 4.4 10/10/2024 7:24 PM EST [facility] Blood Structure of peripheral vein / Unknown Venipuncture / Unknown 10/10/2024 1:36 PM EST 10/10/2024 1:36 PM EST us Taylor Temple [employer]OVER LAB BLOOD ORDERABLES Final R esult [facility] [address] [address], documented in this encounter Visit Diagnoses Diagnosis Healthcare maintenance documented in this encounter Care Teams Brand Strategy Manager Relationship Specialty Start Date End Date Martinez Mendoza MD [address] [place] [address] PCP - General Family Medicine 10/04/24 documented as of this encounter
--- OUTSIDE RECORDS SUMMARY | 2024-10-18 14:17 | XMS_ITS | Encounter Summary ---
Author Organization [facility] Address [address] [place] [address] Care Team Providers Care Wheel Alignment Mechanic Name Role Phone Martinez Mendoza MD Primary Care Provider Reason for Visit * Reason Comments Med Change Request Encounter Details Date Type Department Care Team (Late st Contact Info) Description 10/04/2024 Refill [facility] [address] [facility] Family Medicine Department [address] [place] [address] Taylor Temple NP [address] [place] [address] Dizziness Social History Tobacco Use Types Packs/Day Years Used Date Smoking Tobacco: Former Cigarettes 1 2017 Smokeless Tobacco: Never Comments:: Alcohol Use Standard Drinks/Week Comments Yes 6 (1 standard drink = 0.6 oz pur e alcohol) [facility] Utilities Answer Date Recorded In the past 12 months has [employer], gas, oil, or water [employer] threatened to shut off services in your [...] encounter Miscellaneous Notes * Telephone Encounter - Claire Isidro MA - 10/04/2024 3:36 PM EST Please advise if medication can be changed. documented in this encounter Plan of Treatment Upcoming Encounters Date Type Department Care Team (Late st Contact Info) Description 11/05/2024 7:30 AM EDT Telehealth [facility] [address] [facility] [address] [address] Sylvester Stevenson MD [address] [address] 12/17/2024 2:30 PM EDT Office Visit [address] Family Medicine Department [address] [place] [phone] Martinez Mendoza MD [address] [place] [address] 12/19/2024 2:30 PM EDT Office Visit [facility] 4th Floor [address] [facility], [place] [phone] Noc Technician: Lisa Huff PA [address] [place] [address] documented as of this encounter Visit Diagnoses Diagnosis Dizziness Dizziness and giddiness documented in this encounter Care Teams Wheel Alignment Mechanic Relationship Specialty Start Date End Date Martinez Mendoza MD [address] [place] [phone] PCP - General Family Medicine 10/04/24 documented as of this encounter
--- OUTSIDE RECORDS SUMMARY | 2024-10-18 14:17 | XMS_ITS | Encounter Summary ---
Author Organization [facility] Address [address] [place] [address] Care Team Providers Care Rn Teacher Name Role Phone Martinez Mendoza MD Primary Care Provider [phone] Reason for Visit * Reason Onset Date Comments Results 10/11/2024 Encounter Details Date Type Department Care Team (Late st Contact Info) Description 10/11/[address] Family Medicine Department [address] [place] [phone] Martinez Mendoza MD [address] [place] [address] Results Social History Tobacco Use Types Packs/Day Years Used Date Smoking Tobacco: Former Cigarettes 1 15 - 2017 Smokeless Tobacco: Never Comments:: Alcohol Use Standard Drinks/Week Comments Yes 6 (1 standard drink = 0.6 oz pur e alcohol) [facility] Utilities Answer Date Recorded In the past 12 months has e [employer], gas, oil, or water [employer] threatened to shut off services in your [...] encounter Miscellaneous Notes * Telephone Encounter - Alma Rosa Carrasquillo RICK - 10/11/2024 8:57 AM EST Called pt back it was about result. Let him know result message and pt agreeable to nate vit d * Telephone Encounter - Carla Mullins - 10/11/2024 8:26 AM EST Pt lmtr [facility] @ 8:24 is returning office call and would like a cb documented in this encounter Plan of Treatment Upcoming Encounters Date Type Department Care Team (Late st Contact Info) Description 11/05/2024 7:30 AM EDT Telehealth [facility] 85 [facility] [address] [address] Sylvester Stevenson MD [address] [address] 12/17/2024 2:30 PM EDT Office Visit [address] Family Medicine Department [address] [place] [phone] Martinez Mendoza MD [address] [place] [address] 12/19/2024 2:30 PM EDT Office Visit [facility] 4th Floor [address] [facility] [place] [address] Fence Installer Foreman: Lisa Huff PA [address] [place] [address] documented as of this encounter Visit Diagnoses Not on filedocumented in this encounter Care Teams Rn Teacher Relationship Specialty Start Date End Date Martinez Mendoza MD [address] [place] [phone] PCP - General Family Medicine 10/04/24 documented as of this encounter
--- OUTSIDE RECORDS SUMMARY | 2024-10-18 14:17 | XMS_ITS | Encounter Summary ---
Author Organization [facility] Address [address] [place] [address] Care Team Providers Care Picking Supervisor Name Role Phone Martinez Mendoza MD Primary Care Provider Encounter Details Date Type Department Care Team (Late st Contact Info) Description 10/10/2024 Results Follow-Up [address] Family Medicine Department [address] [place] [address] Taylor Temple NP [address] [place] [address] Social History Tobacco Use Types Packs/Day Years Used Date Smoking Tobacco: Former Cigarettes 1 15 2017 Smokeless Tobacco: Never Comments:: Alcohol Use Standard Drinks/Week Comments Yes 6 (1 standard drink = 0.6 oz pur e alcohol) [facility] Utilities Answer Date Recorded In the past 12 months has e [employer], gas, oil, or water [employer] threatened to shut off services in your [...] as of this encounter Miscellaneous Notes * Result Encounter Note - Alma Rosa Carrasquillo MA - 10/11/2024 9:09 AM EST I called patient. Pt aware of results and agreeable to plan. * Result Encounter Note - Claire Isidro MA - 10/11/2024 8:08 AM EST [facility] documented in this encounter Plan of Treatment Upcoming Encounters Date Type Department Care Team (Late st Contact Info) Description 11/05/2024 7:30 AM EDT Telehealth [facility] [address] [facility] [address] [address] Sylvester Stevenson MD [address] [address] 12/17/2024 2:30 PM EDT Office Visit [address] Family Medicine Department [address] [place] [phone] Martinez Mendoza MD [address] [place] [address] 12/19/2024 2:30 PM EDT Office Visit [facility] 4th Floor [address] [facility], [place] [address] Building Construction Foreman: Lisa Huff PA [address] [place] [address] documented as of this encounter Visit Diagnoses Not on filedocumented in this encounter Care Teams Picking Supervisor Relationship Specialty Start Date End Date Martinez Mendoza MD [address] [place] [address] PCP - General Family Medicine 10/04/24 documented as of this encounter
--- OUTSIDE RECORDS SUMMARY | 2024-10-18 14:17 | XMS_ITS | Encounter Summary ---
Author Organization [facility] Address [address] [place] [address] Care Team Providers Care Physics Tutor Name Role Phone Koffi Hensley MD Primary Care Provider [phone] Reason for Referral * OUTPT P&D-MED SOLUTIONS (Routine) - Authorized Specialty Diagnoses / Procedures Referred By Contac t Referred To Contact Magnetic Resonance Imaging Diagnoses Vertigo Nonintractable headache, unspecified chronicity pattern, unspecified headache type Right facial numbness Procedures MRI BRAIN W AND W/O CONTRAST Tabby Aguila DO [address] [address] Phone: tel: fax: Referral ID Status Reason Start Date Expiration Date Visits Requested Visits Authorized [id number] Authorized Specialty Services Required 10/14/2024 11/28/2024 1 1 Reason for Visit * Reason Comments Neurologic Problem Encounter Details Date Type Department Care Team (Latest Contact Info) Description 10/10/2024 3:00 PM EST Consult (Initial) [facility] Neurology [address] [address] Tabby Aguila DO [address] [address] Vertigo (Primary Dx); Nonintractable headache, unspecified chronicity pattern, unspecified headache type; Right facial numbness Social History Tobacco Use Types Packs/Day Years [...] Pulse 64 10/10/2024 2:57 PM EST Temperature - - Respiratory Rate - - Oxygen Saturation - - Inhaled Oxygen Concentration - - Weight - - Height - - Body Mass Index - - documented in this encounter Patient Instructions * Patient Instructions* Tabby Aguila DO - 10/10/2024 3:00 PM EST I suspect that your dizziness is coming from your ear, either BPPV or vestibular neuritis. The dizziness was not from your neck. I have low suspicion that the dizziness is coming from your brain but we will get brain image to check closer. You should continue following with ENT and I agree you would benefit from PT to help with this and can continue with as needed dramamine. If you still have symp toms after all of this you can consider seeing the neuro-clinical quality assurance specialist at [facility] in [place]. Continue following with the spine center for your neck. Most likely the arm tingling/numbness was from the neck. I would recommend getting an MRI of your brain, you will be called to schedule this after approved through insurance. Follow-up with neurology on an as needed basis. documented in this encounter Progress Notes * Tabby Aguila DO - 10/10/2024 3:00 PM EST Images from the original note were not included. Neurology Clinic Note Dear Koffi Platt MD, I had the pleasure of seeing Jose Pizarro today in our neurology clinic for evaluation of neck pain and vertigo. CC: Neck pain, vertigo HPI: Jose Pizarro is a 44 y.o. right handed man with cervical stenosis and history of migraines who presents for evaluation of neck pain, vertigo, headache and facial numbness. Fall of 2023 was started having paresthesias in the left arm along with neck pain that improved after a steroid injection, but several days after the injection he had focal neck pain recurred and he has been having a difficult time managing the neck pain since that time. He has longstanding cervical stenosis first diagnosed about 10 years ago and got steroid injections at that time which significantly helped with the neck pain. He is following with the spine clinic. He no longer has any numbness and tingling in the left arm. He never had any weakness in the left arm. He never had any symptomsin the right arm. About 1 week prior to presentation he woke up with a significant right sided headache, right-sided facial numbness and vertigo. He described the dizziness as a room spinning sensation provoked by head movements with associated nausea. The headache subsided after about 1 day, but the vertigo has intermittently persisted. Overall the vertigo is trending towards improvement. He did also have some ear fullness on the right, his PCP noted that he had significant cerumen impaction and referred him toENT. The patient also has bilateral tinnitus. He was seen by ENT prior to his clinic visit today, reportedly he underwent examination with a Bison-Hallpike. He tells me that when he did Bison-Hallpike to1 side he did not have any symptoms, but to 1 side he became extremely symptomatic and even felt like he may syncopized. Reportedly he informs me that his ENT provider told him that the positive Jessie-Hallpike test indicated that his dizziness must be coming from his neck and not his inner ear. He was given a referral for vestibular rehab. He denies any other focal neurologic symptoms such as double vision, ptosis, vision loss, dysarthria, dysphagia, focal limb weakness or gait instability. 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 He is a former smoker. Drinks alcohol 1-2 days per week. Uses marijuana several times per month. He does not take any daily medications. In 2018 he previously had an MRI brain for various neurologic complaints, predominantly sensory, MRI was unrevealing. Family neurologic history of MS, dementia and stroke. Family autoimmune history of type 1 diabetes,ulcerative colitis, celiac disease, SLE. ROS: I have reviewed the ROS as documented in the medical sales's note and as stated above. All relevant systems for this visit were addressed. MEDICAL HISTORY Past Medical History: Diagnosis Date Alcohol dependence, drunkenness 12/12/1996 12/05/1996 Nohemy MAST M.A. FAMILY HISTORY No relevant Family Hx SOCIAL HISTORY Social History Tobacco Use Smoking status: Former Types: Cigarettes Smokeless tobacco: Never Tobacco comments: 1 PACK A WEEK Social Drivers of Health Food Insecurity: No Food Insecurity (10/04/2024) Received from [facility] Hunger Vital Sign Worried About Running Out of Food in the Last Year: Never true Ran Out of Food in the Last Year: Never true Transportation Needs: No Transportation Needs (10/04/2024) Received from [facility] Transportation In the past 12 months, has lack of reliable transportation kept you from medical appointments, meetings, work or from getting things needed for daily living?: No MEDICATIONS Medication List Accurate as of October 10, 2024 11:59 PM. If you have any questions, ask your nurse or doctor. CONTINUE taking these medications Ibuprofen 800 MG tablet Commonly known as: ADVIL,MOTRIN Take one tablet (800 mg total) by mouth every 8 (eight) hours if needed for moderate pain. ALLERGIES Allergies Allergen Reactions Cefaclor Other Kdc:Bee Venom+Hornet Venom+Phenol Other and Urticarial Rash Prednisone Dizzy/Confused Varenicline Other Cephalosporins Other PHYSICAL EXAM: BP 117/78 (BP Site: Left arm) Pulse 64 General Exam General: no apparent distress, cooperative, well developed, well nourished. HEENT: NCAT Resp: breathing comfortably on room air Skin: no rashes, no ecchymosis MSK/Extremities: No obvious deformities, no tenderness to palpation of muscles Neurological Exam Mental Status Alert and oriented to person, place, time, and situation Language: fluency normal, commands normal, repetition normal, naming normal. Cranial Nerves II: PERRL; visual acuity OS- intact and OD- intact, visual jackson full III, IV, : EOMI, nystagmus present: several beats of right beating nystagmus when looking to the left, ptosis absent. Test of skew negative. No corrective saccades on head impulse. V: facial sensation intact to light touch VII: facial strength symmetric and strong bilaterally; speech - no dysarthria VIII: hearing right - NL and left- NL X: uvula/palate midline and normal XI: sternocleidomastoid: right- 5/5, left- 5/5; trapezius: right- 5/5. left- 5/5 XII: tongue midline, fasciculations absent Motor Bulk and tone normal. Tremors absent. Fasciculations absent. Drift absent bilaterally. Neck flexion: 5/5, Neck extension: 5/5 Right Left Deltoid 5/5 5/5 Biceps 5/5 5/5 Triceps 5/5 5/5 Wolf Hunter 5/5 5/5 Finger flexion 5/5 5/5 Finger extension 5/5 5/5 Thumb Abduction 5/5 5/5 2nd Finger Abduction 5/5 5/5 5th Finger Abduction 5/5 5/5 Hip Flexion 5/5 5/5 Knee Flexion 5/5 5/5 Knee Extension 5/5 5/5 Dorsiflexion 5/5 5/5 Plantarflexion 5/5 5/5 Sensory Light touch - normal Pinprick - normal Temperature - normal Vibration - normal (>10 sec each toe and >15 sec each hand) Proprioception - normal Tinel's sign: right wrist - absent, left wrist - absent Romberg - normal Cerebellar Finger to nose - normal bilaterally. Heel to hernandez - normal bilaterally. Reflexes Right Left Biceps 2 2 Ticeps 2 2 Brachioradialis 2 2 Patella 2 2 Achilles 2 2 Babinski testing downgoing downgoing Sosa absent absent Clonus absent absent Gait Normal stride length. Stable with normal base. Normal arm swing. Tandem normal. Able to heel walk. Able to toe walk. IMAGING/PROCEDURES I personally reviewed imaging listed below. MRI Brain 11/2017 CONCLUSION: Normal MRI scan of the brain. Other findings noted above MRI C spine 06/2024 IMPRESSION: Straightening of the cervical lordosis. Disc protrusions at C5-C6 and C6-C7 contributing to mild and moderate spinal canal stenosis respectively. No spinal cord compression or spinal cord lesion. High-grade bilateral foraminal stenosis at C5-C6 and C6-C7. ASSESSMENT Jose Pizarro is a 44 y.o. right handed man with cervical stenosis and history of migraines who presents for evaluation of neck pain, vertigo, headache and facial numbness. Overall his neurologic exam is only positive for some right beating nystagmus when he looks to the left, this paired with his description of his symptoms along with his unilateral positive Jessie-Hallpike is suggestive of a peripheral/inner ear etiology of his vertigo, likely BPPV but could also consid er vestibular neuritis. He has already received a PT prescription for vestibular rehab, which I agree with him pursuing. He can also continue taking the Dramamine as needed for the symptoms. He is already established with ENT. If his symptoms are not improved after his ENT recommendations then he can consider seeing neuro otology at [facility]. His symptoms did start with a headache, lower suspicion but there is potential that this could be lingering migraine symptoms. His symptoms are not a result of his cervical stenosis. Since he did have new onset focal neurologic symptoms and with his family history of various autoimmune entities I have recommended getting an MRI brain particularly to rule out demyelinating disease. This MRI scan is considered MEDICALLY NECESSARY for the diagnosis and management and the results of the imaging will impact treatment decisions. Follow-up with neurology can be determined based on the results of the MRI. Plan -MRI brain with and without contrast -Vestibular rehab -Continue following with ENT -can continue with as needed Dramamine -Follow-up as needed I spent 60 minutes on the day of this encounter preparing for, treating, and managing this patient.Please see the assessment and plan for issues addressed. JUANCARLOS Aguila DO, [place] [address] #[phone] * Tata Roberto - 10/10/2024 3:00 PM EST Chief Complaint Patient presents with Neurologic Problem BP was checked. Reviewed patient medications, allergies, and smoking history. 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 No exam or procedure involving the breast, genital or rectal area is anticipated. documented in this encounter Plan of Treatment Upcoming Encounters Date Type Department Care Team (Late st Contact Info) Description 10/21/2024 4:15 PM EST Minor Procedure/Test [facility] [address] [place] [address] Ada Spencer, PT [address] [place] [address] 2024 [facility] NO APPROVAL NEEDED Clem Burleson NP in [facility] ORTHO [facility]ERY 11/12/2024 7:45 PM EDT Radiology [facility]. Magnetic Resonance Imaging [address] [place] [address] [employer] [phone] [facility] 10/10/2024 Scheduled Orders Name Type Priority Associated Diagnoses Orde r Schedule MRI BRAIN W AND W/O CONTRAST Imaging Routine Vertigo Nonintractable headache, unspecified chronicity pattern, unspecified headache type Right facial numbness Expected: 10/10/2024, Expires: 10/10/2027 documented as of this encounter Visit Diagnoses Diagnosis Vertigo- Primary Dizziness and giddiness Nonintractable headache, unspecified chronicity pattern, unspecified headache type Right facial numbness Disturbance of skin sensation documented in this encounter Care Teams Physics Tutor Relationship Specialty Start Date End Date Koffi Hensley MD [facility] [address] [place] [phone] PCP - General Family Medicine 07/08/20 documented as of this encounter
--- OUTSIDE RECORDS SUMMARY | 2024-10-18 14:17 | XMS_ITS | Referral Summary ---
Author Organization [facility] Address [address] [place] [address] Care Team Providers Care Machine Feeder Floorperson Name Role Phone Martinez Mendoza MD Primary Care Provider [phone] Encounters Date Type Department Care Team Description 10/11/2024 Telephone [facility] [address] [facility] Family Medicine Department [address] [place] [address] Martinez Mendoza MD Results 10/10/2024 Results Follow-Up [facility] [address] [facility] Family Medicine Department [address] [place] [address] Taylor Temple NP 10/10/2024 1:35 PM EST Lab [facility] Draw Site Department [address] [place] [address] Healthcare maintenance 10/07/2024 myChart Message [facility] [address] [facility] Family Medicine Department [address] [place] [address] Taylor Temple NP Ent 10/04/2024 Refill [facility] [address] [facility] Family Medicine Department [address] [place] [address] Taylor Temple NP Dizziness 10/04/2024 Refill [facility] [address] [facility] Family Medicine Department [address] [place] [address] Taylor Temple NP Dizziness 10/04/2024 Orders Only [facility] [address] [facility] Medicine Department [address] [place] [address] Taylor Temple NP Healthcare maintenance 10/04/2024 11:30 AM EST Office Visit [facility] 61 [facility] Medicine Department [address] [place] [address] Taylor Temple NP Impacted cerumen of right ear (Primary Dx); Dizziness 10/04/[address] Medicine Department [address] [place] [phone] Koffi Hensley MD Vertigo from Last 3 Months Allergies Active Allergy Reactions Criticality Noted Date Comments Cefaclor Rash High 06/08/2002 Cephalosporins Rash Low 06/25/2015 Insect Venom Hives,Swelling High 02/28/2024 Prednisone Dizziness 01/09/2019 Varenicline Unknown 12/04/2023 Medications EPINEPHrine (EPIPEN JR) 0.15 mg/0.3 mL injection syringe EpiPen 2-Chong 0.3 MG/0.3ML Injection Solution Auto-injector INJECT 1 APPLICATION INTRAMUSCULARLY , NEEDED Quantity: 2; Refills: 0 SHIVANI COSTELLO MD; Started Active 02/14/20 14 Active meclizine (ANTIVERT) 25 mg tabletIndicatio ns:Dizziness Take 1 tablet (25 mg total) by mouth 3 times a day as needed for dizziness. 30 tablet 10/04/19 25 Active cholecalciferol (VITAMIN D3) 1,250 mcg (50,000 unit) capsule Take 1 capsule (50,000 Units total) by mouth once a week. For 12 weeks, then 1000 U vitamin D3 daily 12 capsule 10/10/19 25 Active econazole nitrate 1% creamIndication s:Tinea pedis of left foot Apply topically to the affected area once a day. 30 g 1 12/04/19 24 025 Discontinued (Therapy Completed or No Longer Needed) doxycycline monohydrate (ADOXA) 100 mg tabletIndicatio ns:Tick bite, unspecified site, initial encounter Take 2 tablets (200mg) now by mouth 2 tablet 06/11/20 24 025 Discontinued (Therapy Completed or No Longer Needed) Active Problems Problem Noted Date Diagnosed Date Folliculitis 02/28/2024 Assessment & Plan (02/28/2024 3:19 PM EDT): It appears Milly has a mild pustular folliculitis to his pubic. None that are overly concerning or that I am able to swab at this time for culture. Education on cause of folliculitis and management with washing with a topical antiseptic soap and loofah to the site, especially after shaving. Reach out if worsening or not resolving with use of antibacterial soap, as at this time a topical antibacterial agent, or oral antibiotic are not necessary. Patient in agreement with plan of care. Snoring 12/04/2023 Assessment & Plan (12/04/2023 8:47 AM EDT): Relative to snoring considerations, his symptoms are persistent, however we were not able to complete the consultation with the sleep clinic. I have replaced the referral and we will look forward to input from [facility] and Allergy. Tinea pedis 12/04/2023 Assessment & Plan (12/04/2023 8:47 AM EDT): Left-sided changes consistent with tinea pedis and mild onychomycotic changes. Will use econazole cream as well as more list preventative [employer] medicated once cleared. Follow-up as needed Ankle swelling 01/21/2015 Ganglion cyst 01/21/2015 Displacement of cervical int ervertebral disc without myelopathy 05/16/2014 Radicular pain in right arm 05/16/2014 Esophageal reflux 04/23/2014 Assessment & Plan (12/04/2023 8:47 AM EDT): Very pleased that he reports that he has at worst twice monthly symptoms of reflux disease that are completely relieved with [id number] famotidine. Follow-up as needed if symptoms worsening. 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 Assessment & Plan (12/04/2023 8:47 AM EDT): Recent flareup - last 2 yrs ago - used 's acycovir - refill done Migraine headache 12/28/2008 Shoulder dislocation 12/28/2008 Acne 12/28/2008 Immunizations Immunization Administration Dates Next Due Diphtheria and Tetanus Toxoi ds, Adsorbed for Pediatric Use 11/21/2008,08/28/2002,12/21/1994 Influenza, Injectable, [place] Canine Kidney, Preservative Free, Quadrivalent 06/03/2019,07/24/2018 Poliovirus Vaccine, Inactivated 01/03/2005 Tetanus Toxoid, Reduced Diph theria Toxoid, and Acellular Pertussis Vaccine, Adsorbed 10/05/2021 Social History Tobacco Use Types Packs/Day Years Used Date Smoking Tobacco: Former Cigarettes 1 15 2 - 2017 Smokeless Tobacco: Never Comments:: Alcohol Use Standard Drinks/Week Comments Yes 6 (1 standard drink = 0.6 oz pur e alcohol) [facility] Utilities Answer Date Recorded In the past 12 months has th e [employer], gas, oil, or water [employer] threatened to shut off services in your [...] (208 lb) 10/04/2024 11:34 AM EST Height 179.1 cm (5' 10.5 ) 12/04/2023 7:50 AM ED T Body Mass Index 29.42 12/04/2023 7:50 AM EDT Plan of Treatment Upcoming Encounters Date Type Department Care Team (Late st Contact Info) Description 11/05/2024 7:30 AM EDT Telehealth [facility] 85 [place] [facility] [address] [address] Sylvester Stevenosn MD [address] [address] 12/17/2024 2:30 PM EDT Office Visit [address] Family Medicine Department [address] [place] [phone] Martinez Mendoza MD [address] [place] [address] 12/19/2024 2:30 PM EDT Office Visit [facility] 4th Floor [address] [facility], [place] [address] Can Worker: Lisa Huff PA [address] [place] [address] Procedures * Due to [place] state law, this organization might not be sharing negative HIV tests. Procedure Name Priority Date/Time Associated Diagnosis Comments VITAMIN D, 25-HYDROXY, TOTAL, IMMUNOASSAY Routine 10/10/2024 1:36 PM EST Healthcare maintenance TSH REFLEX FREE T4 Routine 10/10/2024 1: 36 PM EST Healthcare maintenance CBC AUTO DIFFERENTIAL Routine 10/10/2024 1:36 PM EST Healthcare maintenance HEMOGLOBIN A1C Routine 10/10/2024 1:36 PM EST Healthcare maintenance BASIC METABOLIC PANEL Routine 10/10/2024 1:36 PM EST Healthcare maintenance HEPATIC FUNCTION PANEL Routine 10/10/2024 1:36 PM EST Healthcare maintenance LIPID PANEL W/REFLEX TO DIRECT LDL Routine 10/10/2024 1:36 PM EST Healthcare maintenance HEPATITIS PANEL, ACUTE Routine 09/19/2011 4:[address] ABDOMEN W CONTRAST Routine 03/13/2010 2:33 AM EDT from Last 3 Months or Most Recently Relevant to Health Maintenance Results * Due to [place] state law, this organization might not be sharing negative HIV tests. * TSH Reflex Free T4 (10/10/2024 1:36 PM EST) TSH 2.610 0.270 - 4.200 uIU/mL 10/10/2024 7:24 PM EST [facility] Blood Structure of peripheral vein / Unknown Venipuncture / Unknown 10/10/2024 1:36 PM EST 10/10/2024 1:36 PM EST us Taylor Temple E[facility] LAB BLOOD ORDERABLES Final R esult [facility] [address] [facility] [address]ND [place] [address], [place] [phone] * Lipid Panel w/Reflex to Direct LDL (10/10/2024 1:36 PM EST) Cholesterol 194 mg/dL 10/10/2024 7:24 PM EST [facility] Comment: DESIRABLE: <200 mg/dL BORDERLINE HIGH: 200-239 mg/dL HIGH: >239 mg/dL Triglycerides 233 mg/dL 10/10/2024 7:24 PM EST [facility] Comment: NORMAL: <150 mg/dL BORDERLINE HIGH: 150-199 mg/dL HIGH: 200-499 mg/dL VERY HIGH >499 mg/dL Cholesterol, HDL 44 mg/dL 10/10/19 7:24 PM EST [facility] Comment: DESIRABLE: >60 mg/dL BORDERLINE: 40-59 mg/dL UNDESIRABLE: <40 mg/dL LDL Cholesterol 103 mg/dL 7:24 PM EST [facility] Comment: OPTIMAL: <100 mg/dL NEAR OPTIMAL: <130 mg/dL BORDERLINE HIGH: 130-159 mg/dL HIGH: 160-189 mg/dL VERY HIGH: >189 mg/dL VLDL 46.6 mg/dL 10/10/2024 7:24 PM EST [facility] Cholesterol/HDL Ratio 4.4 10/10/2024 7:24 PM EST [facility] Blood Structure of peripheral vein / Unknown Venipuncture / Unknown 10/10/2024 1:36 PM EST 10/10/2024 1:36 PM EST [facility] BLOOD ORDERABLES Final R esult [facility] [address] [place] [address], * CBC Auto Differential (10/10/2024 1:36 PM EST) Pathologist [facility] [place] WBC 5.1 4.8 - 10.8 10*3/uL 10/10/2024 6:54 PM EST [facility] RBC 4.85 4.70 - 6.10 10*6/uL 10/10/2024 6:54 PM EST [facility] Hemoglobin 15.2 13.7 - 16.5 g/dL 10/10/2024 6:54 PM EST [facility] Hematocrit 43.3 40.5 - 48.5 % 10/10/2024 6:54 PM EST [facility] MCV 89.3 80.0 - 94.0 fL 10/10/2024 6:54 PM EST [facility] MCH 31.3 26.0 - 34.0 pg 10/10/2024 6:54 PM EST [facility] MCHC 35.1 31.0 - 36.0 g/dL 10/10/2024 6:54 PM EST [facility] RDW 12.0 12.0 - 15.0 % 10/10/2024 6:54 PM EST [facility] RDW Standard Deviation 39.2 35.1 - 43.9 fL 10/10/2024 6:54 PM EST [facility] Platelets 277 140 - 440 10*3/uL 10/10/2024 6:54 PM EST [facility] MPV 10.6 9.4 - 12.4 fL 10/10/2024 6:54 PM EST [facility] Neutrophil % 50.2 50.0 - 75.0 % 10/10/2024 6:54 PM EST [facility] Immature Grans % 0.2 0.0 - 0.9 % 10/10/2024 6:54 PM EST [facility] Lymphocyte % 34.8 20.0 - 44.0 % 10/10/2024 6:54 PM EST [facility] Monocyte % 11.5 0.0 - 14.0 % 10/10/2024 6:54 PM EST [facility] Eosinophil % 2.7 0.0 - 5.0 % 10/10/2024 6:54 PM EST [facility] Basophil % 0.6 0.0 - 2.0 % 10/10/2024 6:54 PM EST [facility] Neutrophil # 2.56 1.80 - 7.70 10*3/uL 10/10/2024 6:54 PM EST [facility] Immature Grans # <0.03 0.00 - 0.03 10*3/uL 10/10/2024 6:54 PM EST [facility] Lymphocyte # 1.80 1.00 - 4.75 10*3/uL 10/10/2024 6:54 PM EST [facility] Monocyte # 0.60 0.00 - 0.60 10*3/uL 10/10/2024 6:54 PM EST [facility] Eosinophil # 0.10 0.00 - 0.80 10*3/uL 10/10/2024 6:54 PM EST [facility] Basophil # <0.03 0.00 - 0.20 10*3/uL 10/10/2024 6:54 PM EST [facility] nRBC % 0.0 0 - 0 /100 WBCs 10/10/2024 6:54 PM EST [facility] nRBC # <0.01 0.00 - 0.13 10*3/uL 10/10/2024 6:54 PM EST [facility] Blood Structure of peripheral vein / Unknown Venipuncture / Unknown 10/10/2024 1:36 PM EST 10/10/2024 1:36 PM EST [facility] LAB BLOOD ORDERABLES Final R i2i Logic Performing Organization Address City/[facility]/ZIP Co de Phone Number [address] [place] [address], [place] [phone] * (ABNORMAL) Vitamin D, 25-Hydroxy, Total, Immunoassay (10/10/2024 1:36 PM EST) Pathologist [facility] [place] Vitamin D 25-OH 19.90(L) 30.00 - 80.00 ng/mL 10/10/2024 7:35 PM EST [facility] Blood Structure of peripheral vein / Unknown Venipuncture / Unknown 10/10/2024 1:36 PM EST 10/10/2024 1:36 PM EST [facility] LAB BLOOD ORDERABLES Final R esult [facility] [address] [address], [place] [phone] * Hemoglobin A1c (10/10/2024 1:36 PM EST) Pathologist [facility] [place] Hemoglobin A1c 5.6 4.0 - 5.7 % 10/10/2024 7:13 PM EST [facility] Estimated Average Glucose 114 mg/dL 10/10/2024 7:13 PM EST [facility] Blood Structure of peripheral vein / Unknown Venipuncture / Unknown 10/10/2024 1:36 PM EST 10/10/2024 1:36 PM EST Taylor Temple [facility] LAB BLOOD ORDERABLES Final R esult [facility] [address] [address], [place] [phone] * Hepatic Function Panel (10/10/2024 1:36 PM EST) [facility] Total Protein 7.1 6.6 - 8.7 g/dL 10/10/2024 7:24 PM EST [facility] Albumin 4.5 3.5 - 5.0 g/dL 10/10/2024 7:24 PM EST [facility] Globulin, Total 2.6 2.1 - 4.2 g/dL 10/10/2024 7:24 PM EST [facility] Bilirubin, Total 0.4 0.2 - 1.2 mg/dL 10/10/2024 7:24 PM EST [facility] Bilirubin, Direct 0.2 <=0.3 mg/dL 10/10/2024 7:24 PM EST [facility] Alkaline Phosphatase 76 40 - 129 U/L 10/10/2024 7:24 PM EST [facility] AST 29 0 - 40 U/L 10/10/2024 7:24 PM EST [facility] ALT 29 <=41 U/L 10/10/2024 7:24 PM EST [facility] Bilirubin, Indirect 0.20 <=0.70 mg/dL 10/10/2024 7:24 PM EST [facility] A/G Ratio 1.7 1.5 - 3.0 10/10/2024 7:24 PM EST [facility] Blood Structure of peripheral vein / Unknown Venipuncture / Unknown 10/10/2024 1:36 PM EST 10/10/2024 1:36 PM EST Taylor Temple [facility] LAB BLOOD ORDERABLES Final R esult [facility] [address] [facility] [address] [place] [address], * Basic Metabolic Panel (10/10/2024 1:36 PM EST) NA 141 136 - 145 mmol/L 10/10/2024 7:24 PM EST [facility] K 4.7 3.5 - 5.1 mmol/L 10/10/2024 7:24 PM EST [facility] Cl 103 98 - 109 mmol/L 10/10/2024 7:24 PM EST [facility] CO2 29 22 - 32 mmol/L 10/10/2024 7:24 PM EST [facility] BUN 17 6 - 20 mg/dL 10/10/2024 7:24 PM EST [facility] Creatinine 1.02 0.50 - 1.12 mg/dL 10/10/2024 7:24 PM EST [facility] Glucose 81 60 - 99 mg/dL 10/10/2024 7:24 PM EST [facility] Calcium 9.4 8.4 - 10.4 mg/dL 10/10/2024 7:24 PM EST [facility] Anion Gap 14 >=0 10/10/2024 7:24 PM EST [facility] eGFR >90 >=60 mL/min/1. 73m2 10/10/2024 7:24 PM EST [facility] Comment:The estimated glomer ular filtration rate (eGFR) is calculated using a new formula developed by the NKF-ASN task force to eliminate race-based correction factors. The new formula uses serum/plasma creatinine, age, and gender to determine eGFR. A value below 60mls/min might indicate kidney disease and will be flagged. For additional information, see Ashlee travis al, Am J Kidney Dis. 2021;79(2):268- 288, A Unifying Approach for GFR estimation: Recommendations of the NKF-ASN Task Force on Reassessing the Inclusion of Race in Diagnosing Kidney Disease . Blood Structure of peripheral vein / Unknown Venipuncture / Unknown 10/10/2024 1:36 PM EST 10/10/2024 1:36 PM EST Taylor Temple LAB BLOOD ORDERABLES Final R esult Performing Organization Address City/[facility]/ZIP Co de Phone Number [facility] [address] [place] [address] [address] [place] [address], * Hepatitis Panel, Acute (09/19/2011 4:32 PM EST) Hepatitis A IgM Antibody Negative Negative [facility] Hepatitis B Core IgM Antibody Negative Negative [facility] Hepatitis B Surface Ag Negative Negative [facility] Hepatitis C Antibody 0.02 <1.00 IV [facility] Comment: Negative Not infected with HCV, unless recent infection is suspected or other evidence exists to indicate HCV infection. 09/19/2011 4:32 PM EST 09/19/2011 5:59 PM EST us [facility] LAB BLOOD ORDERABLES Fin al Result Performing Organization Address City/[facility]/ZIP Co de Phone Number [facility] [address] [place] [address], [place] * CT Abdomen W Contrast (03/13/2010 2:33 AM EDT) Anatomical Region Laterality Modality Body Computed Tomogra phy 03/13/2010 8:54 AM EDT Narrative 03/13/2010 1:20 PM EDT ? DEPARTMENT OF RADIOLOGY ? ----- ?Patient: MILLY BORGES ? Unit #: [id number] ?Ordering MD: RONDA RAMOS MD ? : 1980 ?Procedure: CT Abdomen W/Contrast ?Age: 30 ?Location: [facility] ? Exam Date: 03/13/10 ?Status: DEP ER ?Room/Bed: ?Primary MD: RONDA GRANT ?Patient ?Order: [id number] ?Additional Copy: ??RONDA RAMOS MD, MICHAEL ? ----- CT OF THE ABDOMEN AND PELVIS HISTORY: ??Trauma. TECHNIQUE: ??Axial MDCT images are obtained from the lung bases to the pubic symphysis after the intravenous administration of Optiray. ??Coronal and sagittal reformatted images are provided. CONTRAST: ??Intravenous non-ionic contrast. COMPARISON FILMS: ??None. FINDINGS: ??CT OF THE ABDOMEN WITH INTRAVENOUS CONTRAST: The imaged portion of the lung bases, heart, and pericardium appear unremarkable. There is no free fluid or free air in the abdomen. ??The liver, spleen, pancreas, gallbladder, bilateral adrenal glands, and kidneys appear unremarkable. ??Aorta is normal in caliber and contour. ??Large and small bowel loops appear unremarkable. The appendix is normal. CT OF THE PELVIS WITH INTRAVENOUS CONTRAST: There is hematoma in the left lateral abdominal wall and buttock, extending from adjacent to the left iliac crest (2:44), inferiorly along the left hip and buttock subcutaneous tissues. ??The pelvic loops of bowel appear unremarkable, as does the urinary bladder, distal ureters, prostate, and seminal vesicles. BONE WINDOWS: No fractures are identified. ??A sclerotic focus in the right iliac wing most likely represents a bone island. CONCLUSION: LEFT LATERAL ABDOMINAL WALL/HIP SUBCUTANEOUS HEMATOMA. ??OTHERWISE, NO EVIDENCE OF ACUTE TRAUMATIC INJURY TO THE ABDOMEN OR PELVIS. POI: ??[place], [place] ELECTRONICALLY SIGNED BY Alma Rosa Hamilton M.D. ON 03/13/2010 13:18 DD: ??03/13/2010 at 08:54 / DT: ??[id number]//03/13/2010 at 11:42 Job: [id number] Procedure Note Provider, Historical Conversion - 05/28/2023 DEPARTMENT OF RADIOLOGY ----- Patient: MILLY BORGES Unit #:[id number] Ordering MD: RONDA RAMOS MD :1980 Procedure: CT Abdomen W/Contrast Age:30 Location: [facility] ExamDate: 03/13/10 Status: DEP ERRoom/Bed: Primary MD: RONDA GRANT PatientAcct #: [id number] Order:[id number] Additional Copy: RONDA RAMOS MD, MICHAEL ----- CT OF THE ABDOMEN AND PELVIS HISTORY: Trauma. TECHNIQUE: Axial MDCT images are obtained from the lung bases to thepubic symphysis after the intravenous administration of Optiray. Coronal andsagittal reformatted images are provided. CONTRAST: Intravenous non-ionic contrast. COMPARISON FILMS: None. FINDINGS: CT OF THE ABDOMEN WITH INTRAVENOUS CONTRAST: The imaged portion of the lung bases, heart, and pericardium appearunremarkable. There is no free fluid or free air in the abdomen. The liver, spleen,pancreas, gallbladder, bilateral adrenal glands, and kidneys appear unremarkable.Aorta is normal in caliber and contour. Large and small bowel loops appearunremarkable. The appendix is normal. CT OF THE PELVIS WITH INTRAVENOUS CONTRAST: There is hematoma in the left lateral abdominal wall and buttock,extending from adjacent to the left iliac crest (2:44), inferiorly along the left hip andbuttock subcutaneous tissues. The pelvic loops of bowel appear unremarkable, asdoes the urinary bladder, distal ureters, prostate, and seminal vesicles. BONE WINDOWS: No fractures are identified. A sclerotic focus in the right iliac wingmost likely represents a bone island. CONCLUSION: LEFT LATERAL ABDOMINAL WALL/HIP SUBCUTANEOUS HEMATOMA. OTHERWISE, NOEVIDENCE OF ACUTE TRAUMATIC INJURY TO THE ABDOMEN OR PELVIS. POI: [place], [place] ELECTRONICALLY SIGNED BY Alma Rosa Hamilton M.D. ON 03/13/2010 13:18 at 08:54 / DT: [id number]//03/13/2010 at 11:42 Job:[id number] [facility] PROCEDURES Final Result from Last 3 Months or Most Recently Relevant to Health Maintenance Insurance [facility] Member Subscriber Plan / Payer (Ef fective 2024-Present) Name:Milly Borges Relation to Subscriber:Self Name:Milly Borges Payer ID:[id number] (NAIC) Type:Not on file Address: 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
--- OUTSIDE RECORDS SUMMARY | 2024-10-18 14:17 | XMS_ITS | Encounter Summary ---
Author Organization [facility] Address [address] [place] [address] Care Team Providers Care Offset Press Assistant Name Role Phone Martinez Mendoza MD Primary Care Provider [phone] Reason for Visit * Reason Comments Med Change Request Encounter Details Date Type Department Care Team (Late st Contact Info) Description 10/04/2024 [facility] [address] [facility] Family Medicine Department [address] [place] [address] Taylor Temple NP [address] [place] [address] Dizziness Social History Tobacco Use Types Packs/Day Years Used Date Smoking Tobacco: Former Cigarettes 1 2017 Smokeless Tobacco: Never Comments:: Alcohol Use Standard Drinks/Week Comments Yes 6 (1 standard drink = 0.6 oz pur e alcohol) [facility] Utilities Answer Date Recorded In the past 12 months has [employer], gas, oil, or water [employer] threatened to shut off services in your [...] Encounter - Jana Latif LPN - 10/04/2024 3:09 PM EST Pt contacted he will purchase the OTC * Telephone Encounter - Taylor Temple NP - 10/04/2024 2:48 PM EST Please let him know that he can get dramine OTC * Telephone Encounter - Naomi Clemente MA - 10/04/2024 12:30 PM EST Alternative requested medication not covered by Pt's insurance documented in this encounter Plan of Treatment Upcoming Encounters Date Type Department Care Team (Late st Contact Info) Description 11/05/2024 7:30 AM EDT Telehealth [facility] [address] [place] [facility] [address] [place] [address] Sylvester Stevenson MD [address] [place] [address] 12/17/2024 2:30 PM EDT Office Visit [address] Family Medicine Department [address] [place] [phone] Martinez Mendoza MD [address] [place] [address] 12/19/2024 2:30 PM EDT Office Visit [facility] 4th Floor [address] [facility], [place] [address] Almond Paste Molder: Lisa Huff PA [address] [place] [address] documented as of this encounter Visit Diagnoses Diagnosis Dizziness Dizziness and giddiness documented in this encounter Care Teams Offset Press Assistant Relationship Specialty Start Date End Date Martinez Mendoza MD [address] [place] [address] PCP - General Family Medicine 10/04/24 documented as of this encounter
--- NOTE | 2024-10-18 14:18 | A.SPINEOV_ITS ---
Vital Signs 10/18/24 14:19 Height 5 ft 11 in Weight 190 lb BMI 26.5 Intake Visit Reasons: neck, left arm pain Intake Note: Mr. Pizarro is here today c/o neck and left arm pain. Broadcast Technician Required: No Allergies cefaclor [From Ceclor] Allergy (Severe, Verified 10/18/24 14:21) Rash Physical Exam Vital Signs: BMI result Body Mass Index 26.5 Assessment & Plan Assessment & Plan (1) Cervical radiculopathy due to intervertebral disc disorder: Code(s): M50.10 - Cervical disc disorder with radiculopathy, unspecified cervical region Category: Medical Plan Dear colleague Thank you for referring Jose Pizarro to the office today with a chief complaint of resolving neck pain. HPI: This 44-year-old male developed severe neck pain 10 years ago was treated with the epidural steroid injection. Around last he developed another bout of neck pain radiating down his left arm. Pain was associated with numbness tingling. The symptoms were in the triceps area and then down into his hand. Extension of the neck would elicit the symptoms down the left arm. The right side is unaffected. He underwent a 2nd injection that took care of the arm symptoms. He still has posterior neck pain. He takes Tylenol or ibuprofen daily but the symptoms have diminished significantly. He is also in physical therapy. 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 PMH: Noncontributory Medications: Other than over the counter medications none Allergies: Cedor Social history: . Nonsmoker Family history: Positive for autoimmune diseases Physical Exam: Pleasant male. Spurling test produces neck pain. Motor exam is 5/5 throughout. Sensory exam is intact. Reflexes are symmetrically intact. No pathological reflexes. Radiological Studies: MRI done at [facility] shows cervical degenerative disc disease C5-6 and C6-7 with disc osteophyte complexes producing bilateral C6 foraminal stenosis and [id number] left C7 foraminal stenosis Impression/Plan: This patient is suffering from a resolving cervical radiculopathy, most likely C7. Currently he is not a surgical candidate. I would recommend a total disc arthropathy C6-7 if the symptoms return. Thank you for allowing me to participate in your patients care. total time spent was 50 minutes in counseling ,coordination of plan, personal review of imaging, surgical decision making and subsequent plan Rufino Calles MD, PhD Spine Fellowship Trained Neurosurgeon Director, [facility] Coding Level of Care Code New Pt Level 4 (64998) Diagnoses Cervical radiculopathy due to intervertebral disc disorder M50.10
--- OUTSIDE RECORDS SUMMARY | 2024-10-18 14:18 | XMS_ITS | Clinical Summary ---
Author Organization [facility] Address [address] [place] [address] Care Team Providers Care Production Clerk Name Role Phone Martinez Mendoza MD Primary Care Provider Allergies Active Allergy Reactions Criticality Noted Date [...] reflux disease that are completely relieved with [id number] famotidine. Follow-up as needed if symptoms worsening. 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 Assessment & Plan (12/04/2023 8:47 AM EDT): Recent flareup - last 2 yrs ago - used 's acycovir - refill done Migraine headache 12/28/2008 Shoulder dislocation 12/28/2008 Acne 12/28/2008 Encounters Date Type Department Care Team Description 10/11/[address] Medicine Department [address] [place] [phone] Martinez Mendoza MD Results 10/10/2024 1:35 PM EST Lab [facility] Draw Site Department [address] [place] [address] Healthcare maintenance 10/10/2024 Results Follow-Up [address] Department [address] [place] [phone] Taylor Temple NP 10/07/2024 myChart Message [address] Department [address] [place] [phone] Taylor Temple NP Ent 10/04/2024 11:30 AM EST Office Visit [address] Department [address] [place] [phone] Taylor Temple NP Impacted cerumen of right ear (Primary Dx); Dizziness 10/04/[address] Department [address] [place] [phone] Taylor Temple NP Dizziness 10/04/[address] Department [address] [place] [phone] Taylor Temple NP Dizziness 10/04/2024 Orders Only [address] Medicine Department [address] [place] [phone] Taylor Temple NP Healthcare maintenance 10/04/2024 Telephone [facility] [address] [facility] Family Medicine Department [address] [facility] RICK Calderon [phone] Koffi Hensley MD Vertigo from Last 3 Months Immunizations Immunization Administration Dates Next Due Diphtheria and Tetanus Toxoi ds, Adsorbed for Pediatric Use 11/21/2008,08/28/2002,12/21/1994 Influenza, Injectable, [place]in [place] Canine Kidney, Preservative Free, Quadrivalent 06/03/2019,07/24/2018 Poliovirus Vaccine, Inactivated 01/03/2005 Tetanus Toxoid, Reduced Diph theria Toxoid, and Acellular Pertussis Vaccine, Adsorbed 10/05/2021 Family History Medical History Relation Name Comments Other Mother Family History of thyroid disease Relation Name Status Comments Father Alive Mother Alive Social History Tobacco Use Types Packs/Day Years Used Date Smoking Tobacco: Former Cigarettes 2017 Smokeless Tobacco: Never Comments:: Alcohol Use Standard Drinks/Week Comments Yes 6 (1 standard drink = 0.6 oz pur e alcohol) [facility] Utilities Answer Date Recorded In the past [...] Info) Description 11/05/2024 7:30 AM EDT Telehealth [facility] [address] [place] [facility] [address] [address] Sylvester Stevenson MD [address] [address] 12/17/2024 2:30 PM EDT Office Visit [address] Family Medicine Department [address] [place] [phone] Martinez Mendoza MD [address] [place] [address] 12/19/2024 2:30 PM EDT Office Visit [facility] 4th Floor [address] [facility], [place] [phone] Director Airport: Lisa Huff PA [address] [place] [address] Health Maintenance Due Date Last Done Comments HIV Screening 1980 Varicella Vaccines (1 of 2 - 13+ 2-dose series) 01/06/1993 Hepatitis B Vaccines (1 of 3 - 19+ 3-dose series) 01/06/1999 COVID-19 Vaccine (3 - 2023- season) 2024 02/05/2021, 12/25/2020 Influenza Vaccine (#1) 2024 06/03/2019, 2017 Depression Screening and Follow-Up 10/04/2025 10/04/2024 Social Drivers of Health Annual Screening 10/04/2025 10/04/2024 DTaP,Tdap,and Td Vaccines (5 - Td or Tdap) 10/05/2031 10/05/2021, 11/21/2008, 08/28/2002, Additional history exists RSV Vaccine (60+ years old and patients) (1 - 1-dose 75+ series) 01/06/2055 Abdominal Aortic Aneurysm (AAA) Screening Completed 03/13/2010 Hepatitis C Screening Completed 09/19/2011 Alcohol/Substance Use Screening Completed 10/04/2024 Pneumococcal Vaccine: Pediatric (0-5 Years) and At-Risk Patients (6-50 Years) Aged Out No longer eligible based on patient's age to complete this topic Procedures * Due to [place] state law, this organization might not be [...] to Health Maintenance Results * Due to [place] state law, this organization might not be sharing negative HIV tests. * TSH Reflex Free T4 (10/10/2024 1:36 PM EST) TSH 2.610 0.270 - 4.200 uIU/mL 10/10/2024 7:24 PM EST [facility] Blood Structure of peripheral vein / Unknown Venipuncture / Unknown 10/10/2024 1:36 PM EST 10/10/2024 1:36 PM EST us Taylor Temple MACHINE TECHNICIAN LAB BLOOD ORDERABLES Final R esult Performing Organization Address City/State/[facility] Co de Phone Number [facility] [address] [place] [address] [address] [place] [address], [place] [phone] * Lipid Panel w/Reflex to Direct LDL (10/10/2024 1:36 PM EST) Cholesterol 194 mg/dL 10/10/2024 7:24 PM EST [facility] Comment: DESIRABLE: <200 mg/dL BORDERLINE HIGH: 200-239 mg/dL HIGH: >239 mg/dL Triglycerides 233 mg/dL 10/10/2024 7:24 PM EST [facility] Comment: NORMAL: <150 mg/dL BORDERLINE HIGH: 150-199 mg/dL HIGH: 200-499 mg/dL VERY HIGH >499 mg/dL Cholesterol, HDL 44 mg/dL 10/10/19 7:24 PM EST [facility] Comment: DESIRABLE: >60 mg/dL BORDERLINE: 40-59 mg/dL UNDESIRABLE: <40 mg/dL LDL Cholesterol 103 mg/dL 7:24 PM EST [facility] Comment: OPTIMAL: <100 mg/dL NEAR OPTIMAL: <130 mg/dL BORDERLINE HIGH: 130-159 mg/dL HIGH: 160-189 mg/dL VERY HIGH: >189 mg/dL VLDL 46.6 mg/dL 10/10/2024 7:24 PM EST [facility] Cholesterol/HDL Ratio 4.4 10/10/2024 7:24 PM EST [facility] Blood Structure of peripheral vein / Unknown Venipuncture / Unknown 10/10/2024 1:36 PM EST 10/10/2024 1:36 PM EST us Taylor Temple MACHINE TECHNICIAN LAB BLOOD ORDERABLES Final R esult [facility] [address] [place] [address], * CBC Auto Differential (10/10/2024 1:36 PM EST) WBC 5.1 4.8 - 10.8 10*3/uL 10/10/2024 6:54 PM EST [facility] RBC 4.85 4.70 - 6.10 10*6/uL 10/10/2024 6:54 PM EST [facility] Hemoglobin 15.2 13.7 - 16.5 g/dL 10/10/2024 6:54 PM EST [facility] Hematocrit 43.3 40.5 - 48.5 % 10/10/2024 6:54 PM EST [facility] MCV 89.3 80.0 - 94.0 fL 10/10/2024 6:54 PM EST [facility] MCH 31.3 26.0 - 34.0 pg 10/10/2024 6:54 PM EST [facility] MCHC 35.1 31.0 - 36.0 g/dL 10/10/2024 6:54 PM EST [facility] RDW 12.0 12.0 - 15.0 % 10/10/2024 6:54 PM EST [facility] RDW Standard Deviation 39.2 35.1 - 43.9 fL 10/10/2024 6:54 PM EST [facility] Platelets 277 140 - 440 10*3/uL 10/10/2024 6:54 PM EST [facility] MPV 10.6 9.4 - 12.4 fL 10/10/2024 6:54 PM EST [facility] Neutrophil % 50.2 50.0 - 75.0 % 10/10/2024 6:54 PM EST [facility] Immature Grans % 0.2 0.0 - 0.9 % 10/10/2024 6:54 PM EST [facility] Lymphocyte % 34.8 20.0 - 44.0 % 10/10/2024 6:54 PM EST [facility] Monocyte % 11.5 0.0 - 14.0 % 10/10/2024 6:54 PM EST [facility] Eosinophil % 2.7 0.0 - 5.0 % 10/10/2024 6:54 PM EST [facility] Basophil % 0.6 0.0 - 2.0 % 10/10/2024 6:54 PM EST [facility] Neutrophil # 2.56 1.80 - 7.70 10*3/uL 10/10/2024 6:54 PM EST [facility] Immature Grans # <0.03 0.00 - 0.03 10*3/uL 10/10/2024 6:54 PM EST [facility] Lymphocyte # 1.80 1.00 - 4.75 10*3/uL 10/10/2024 6:54 PM EST [facility] Monocyte # 0.60 0.00 - 0.60 10*3/uL 10/10/2024 6:54 PM EST [facility] Eosinophil # 0.10 0.00 - 0.80 10*3/uL 10/10/2024 6:54 PM EST [facility] Basophil # <0.03 0.00 - 0.20 10*3/uL 10/10/2024 6:54 PM EST [facility] nRBC % 0.0 0 - 0 /100 WBCs 10/10/2024 6:54 PM EST [facility] nRBC # <0.01 0.00 - 0.13 10*3/uL 10/10/2024 6:54 PM EST [facility] Blood Structure of peripheral vein / Unknown Venipuncture / Unknown 10/10/2024 1:36 PM EST 10/10/2024 1:36 PM EST [facility] MACHINE TECHNICIAN LAB BLOOD ORDERABLES Final R esult Performing Organization Address [facility] de Phone Number [facility] [address] [address], [place] [phone] * (ABNORMAL) Vitamin D, 25-Hydroxy, Total, Immunoassay (10/10/2024 1:36 PM EST) Vitamin D 25-OH 19.90(L) 30.00 - 80.00 ng/mL 10/10/2024 7:35 PM EST [facility] Blood Structure of peripheral vein / Unknown Venipuncture / Unknown 10/10/2024 1:36 PM EST 10/10/2024 1:36 PM EST [facility] MACHINE TECHNICIAN LAB BLOOD ORDERABLES Final R esult Performing Organization Address [facility] de Phone Number [facility] [address] [place] [address], [place] [phone] * Hemoglobin A1c (10/10/2024 1:36 PM EST) Hemoglobin A1c 5.6 4.0 - 5.7 % 10/10/2024 7:13 PM EST [facility] Estimated Average Glucose 114 mg/dL 10/10/2024 7:13 PM EST [facility] Blood Structure of peripheral vein / Unknown Venipuncture / Unknown 10/10/2024 1:36 PM EST 10/10/2024 1:36 PM EST [facility] MACHINE TECHNICIAN LAB BLOOD ORDERABLES Final R esult Performing Organization Address [facility] Co ms Phone Number [facility] [address] [address], [place] [phone] * Hepatic Function Panel (10/10/2024 1:36 PM EST) Total Protein 7.1 6.6 - 8.7 g/dL 10/10/2024 7:24 PM EST [facility] Albumin 4.5 3.5 - 5.0 g/dL 10/10/2024 7:24 PM EST [facility] Globulin, Total 2.6 2.1 - 4.2 g/dL 10/10/2024 7:24 PM EST [facility] Bilirubin, Total 0.4 0.2 - 1.2 mg/dL 10/10/2024 7:24 PM EST [facility] Bilirubin, Direct 0.2 <=0.3 mg/dL 10/10/2024 7:24 PM EST [facility] Alkaline Phosphatase 76 40 - 129 U/L 10/10/2024 7:24 PM EST [facility] AST 29 0 - 40 U/L 10/10/2024 7:24 PM EST [facility] ALT 29 <=41 U/L 10/10/2024 7:24 PM EST [facility] Bilirubin, Indirect 0.20 <=0.70 mg/dL 10/10/2024 7:24 PM EST [facility] A/G Ratio 1.7 1.5 - 3.0 10/10/2024 7:24 PM EST [facility] Blood Structure of peripheral vein / Unknown Venipuncture / Unknown 10/10/2024 1:36 PM EST 10/10/2024 1:36 PM EST Taylor Temple MACHINE TECHNICIAN LAB BLOOD ORDERABLES Final R esult [facility] [address] [address], [place] [phone] * Basic Metabolic Panel (10/10/2024 1:36 PM EST) NA 141 136 - 145 mmol/L 10/10/2024 7:24 PM EST [facility] K 4.7 3.5 - 5.1 mmol/L 10/10/2024 7:24 PM EST [facility] Cl 103 98 - 109 mmol/L 10/10/2024 7:24 PM EST [facility] CO2 29 22 - 32 mmol/L 10/10/2024 7:24 PM EST [facility] BUN 17 6 - 20 mg/dL 10/10/2024 7:24 PM EST [facility] Creatinine 1.02 0.50 - 1.12 mg/dL 10/10/2024 7:24 PM EST [facility] Glucose 81 60 - 99 mg/dL 10/10/2024 7:24 PM EST [facility] Calcium 9.4 8.4 - 10.4 mg/dL 10/10/2024 7:24 PM EST [facility] Anion Gap 14 >=0 10/10/2024 7:24 PM EST [facility] eGFR >90 >=60 mL/min/1. 73m2 10/10/2024 7:24 PM EST [facility] Comment:The estimated glomer ular filtration rate [...] EST 10/10/2024 1:36 PM EST Taylor Temple NP LAB BLOOD ORDERABLES Final R esult Performing Organization Address City/State/[facility] Co de Phone Number [facility] [address] [facility] [address] [place] [address], * Hepatitis Panel, Acute (09/19/2011 4:32 PM EST) Hepatitis A IgM Antibody Negative Negative [facility] Hepatitis B Core IgM Antibody Negative Negative [facility] Hepatitis B Surface Ag Negative Negative [facility] Hepatitis C Antibody 0.02 <1.00 IV [facility] Comment: Negative Not infected with HCV, unless recent infection is suspected or other evidence exists to indicate HCV infection. 09/19/2011 4:32 PM EST 09/19/2011 5:59 PM EST us Luna Moscoso LAB BLOOD ORDERABLES Fin al Result Performing Organization Address [facility] de Phone Number [facility] [address] [place] [address], [place] * CT Abdomen W Contrast (03/13/2010 2:33 AM EDT) Anatomical Region Laterality Modality Body Computed Tomogra phy 03/13/2010 8:54 AM EDT Narrative 03/13/2010 1:20 PM EDT ? DEPARTMENT OF RADIOLOGY ? ----- ?Patient: MILLY BORGES ? Unit #: [id number] ?Ordering MD: RONDA RAMOS MD ? : [...] INJURY TO THE ABDOMEN OR PELVIS. POI: ??[place], [place] ELECTRONICALLY SIGNED BY Alma Rosa Hamilton M.D. ON 03/13/2010 13:18 DD: ??03/13/2010 at 08:54 / DT: ??[id number]/03/13/2010 at 11:42 Job: [id number] Procedure Note Provider, Historical Conversion - 05/28/2023 DEPARTMENT OF RADIOLOGY ----- Patient: MILLY BORGES Unit #:[id number] Ordering MD: RONDA RAMOS MD :1980 Procedure: CT Abdomen W/Contrast Age:30 Location: [facility] ExamDate: 03/13/10 Status: DEP ERRoom/Bed: Primary MD: RONDA GRANT PatientAcct #: [id number] Order:[id number] Additional Copy: RONDA RAMOS MD, MICHAEL [...] INJURY TO THE ABDOMEN OR PELVIS. POI: [place], [place] ELECTRONICALLY SIGNED BY Alma Rosa Hamilton M.D. 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
--- OUTSIDE RECORDS SUMMARY | 2024-10-18 14:18 | XMS_ITS | Encounter Summary ---
Author Organization [facility] Address [address] [place] [address] Care Team Providers Care Purifying Plant Operator Name Role Phone Koffi Hensley MD Primary Care Provider [phone] Reason for Visit * Reason Onset Date Comments Physical Therapy 09/30/2024 Encounter Details Date Type Department Care Team (Late st Contact Info) Description 09/30/2024 4:45 PM EST Minor Procedure/Test [facility] [address] [place] [phone] Sai Fish TELEVISION NEWS ANCHOR [address] [place] [address] Cervical radiculopathy - REHAB PT (Primary Dx) [...] Progress Notes * Sai Fish PTA - 09/30/2024 4:45 PM EST Jose Campo Juarez is a 44 y.o. male DOS: 09/30/2024 Visit # 2 For treatment of: ICD-10-CM 1. Cervical radiculopathy - REHAB PT M54.12 PRECAUTIONS / CONTRAINDICATIONS: standard Patient / Family goals: decrease pain and numbness Date of Onset: 2-3 months Perioperative Nurse not necessary for this visit. No exam or procedure involving the breast, genital or rectal area is anticipated. SUBJECTIVE: 2 identifier confirmed: YES Patient stated Things have been great since the shot. A lot of the numbness went away. Pain Scale: Now: 0/10 OBJECTIVE: Patient performed and/or progressed the following exercises: In sitting: - Scap retraction 10s hold x 10 - Posterior shoulder rolls x 10 - B shoulder ER with scap set vs green band 20s hold x 4 In standing against wall with towel behind head: - Shoulder flex AROM x 10 - Shoulder abd AROM x 10 In standing: - Pec stretch in corner with arms in 90 abd 30s x 2 - L shoulder ER/IR vs green band x 10 each - Rows vs green band 20s hold x 4 HEP: Access Code: [email or web address] URL: [email or web address] Exercises - Shoulder External Rotation and Scapular Retraction with Resistance - 1 x daily - 1-2 sets - 3-5 reps - 20 hold - green resistance band - Standing Shoulder Row with Anchored Resistance - 1 x daily - 1-2 sets - 3-5 reps - 20 hold - green resistance band - Standing Isometric Cervical Extension and Bilateral Shoulder Flexion with Ball at Wall - 1-2 x daily - 1 sets - 10 reps Timed Code Treatment Minutes 32 Total Treatment Time Minutes 32 ASSESSMENT: Patient tolerated treatment well. Good tolerance to therex progressions. Patient noted fatigued with today's session. No increase in pain or symptoms during increased activity. Patient overall appears to have improvement since the injection on 09/12/24. Will continue with upper back strengthening / stability next visit. PLAN: Continue to follow the plan of [...] with tasks at work Primary PT: Ada Spencer PT, DPT License # [id number] Sai Fish PTA [place] License #[id number] documented in this encounter Plan of Treatment Upcoming Encounters Date Type Department Care Team (Late st Contact Info) Description 10/21/2024 4:15 PM EST Minor Procedure/Test [facility] [address] [place] [phone] Ada Spencer, PT [address] [place] [address] 2024 [facility] NO APPROVAL NEEDED Clem Burleson NP in [facility] ORTHO SURGERY 11/12/2024 7:45 PM EDT Radiology [facility] [address] [place] [address] [employer] [phone] [employer] 10/10/2024 documented as of this encounter Visit Diagnoses Diagnosis Cervical radiculopathy - REHAB PT- Primary Brachial neuritis or radiculitis nos documented in this encounter Care Teams Purifying Plant Operator Relationship Specialty Start Date End Date Koffi Hensley MD [facility] [address] [place] [phone] PCP - General Family Medicine 07/08/20 documented as of this encounter
--- OUTSIDE RECORDS SUMMARY | 2024-10-18 14:18 | XMS_ITS | Encounter Summary ---
Author Organization [facility] Address [address] [place] [address] Care Team Providers Care Resident Surgeon Name Role Phone Koffi Hensley MD Primary Care Provider [phone] Reason for Visit * Reason Onset Date Comments Physical Therapy 10/07/2024 Encounter Details Date Type Department Care Team (Late st Contact Info) Description 10/07/2024 6:15 PM EST Minor Procedure/Test [facility] [address] [place] [id number] Sai Fish INSTITUTIONAL NUTRITION CONSULTANT [address] [place] [address] Cervical radiculopathy - REHAB PT (Primary Dx) [...] Progress Notes * Sai Fish PTA - 10/07/2024 6:15 PM EST Jose Campo Juarez is a 44 y.o. male DOS: 10/07/2024 Visit # 3 For treatment of: ICD-10-CM 1. Cervical radiculopathy - REHAB PT M54.12 PRECAUTIONS / CONTRAINDICATIONS: standard Patient / Family goals: decrease pain and numbness Date of Onset: 2-3 months Floorman not necessary for this visit. No exam or procedure involving the breast, genital or rectal area is anticipated. SUBJECTIVE: 2 identifier confirmed: YES Patient stated It got worse. Last Monday I woke up really sore in my neck right in the center spot. I chopped it up to the way I slept. I woke up the next day and I was really sore. I had a lot of that numbness into the right side of my head with a screaming headache. I had crazy vertigo and I'm still dizzy. It's more general dizziness. Monday/Monday I didn't drive it was that bad. Pain Scale: Now: 3-12/05 OBJECTIVE: Patient performed and/or progressed the following exercises: In sitting: - Thoracic rotation with arms crossed and hips in abd x 10, 2 sets - B shoulder ER with scap retraction vs green band 20s hold x 3, 2 sets - Cervical flex/ext AROM with towel behind neck x 8 - Horizontal abd vs green band x 10, 2 sets In standing: - Shoulder ext with scap retraction vs green band 20s hold x 4 - Alt row vs green band x 10, 2 sets each side with gentle thoracic rotation HEP: Access Code: [email or web address] URL: [email or web address] Exercises - Shoulder External Rotation and Scapular [...] green resistance band Timed Code Treatment Minutes 29 Total Treatment Time Minutes 29 ASSESSMENT: Patient tolerated treatment fair. Patient reports an incident of dizziness and increased numbness into the right side of the head. Today was mostly done in sitting to not increase the dizziness. Patient is following his PCP and has a neurology appointment next week. PLAN: Continue to follow the plan of [...] PT: Ada Spencer, PT, DPT License # [id number] Sai Fish PTA [place] License #[id number] documented in this encounter Plan of Treatment Upcoming Encounters Date Type Department Care Team (Late st Contact Info) Description 10/21/2024 4:15 PM EST Minor Procedure/Test [facility] [address] [place] [phone] Ada Spencer, PT [address] [place] [address] 2024 [facility] NO APPROVAL NEEDED Clem Burleson NP in [facility] ORTHO SURGERY 11/12/2024 7:45 PM EDT Radiology [facility] [address] [place] [address] [facility] [phone] [facility] documented as of this encounter Visit Diagnoses Diagnosis Cervical radiculopathy - REHAB PT- Primary Brachial neuritis or radiculitis nos documented in this encounter Care Teams Resident Surgeon Relationship Specialty Start Date End Date Koffi Hensley MD [facility] [address] [place] [phone] PCP - General Family Medicine 07/08/20 documented as of this encounter
[2024-10-18 14:19] VITALS: BMI 26.5
== END 2024-10-18 16:01 | disposition home or self-care (01) ==
PROVIDERS: PCP Family Medicine; Visit Provider Neurological Surgery
DX: M50.10 Cervical disc disorder with radiculopathy, unspecified cervical region (principal)
CPT/HCPCS: 99204

== ENCOUNTER → 2024-10-18 13:50 | Outpatient (BNVA) | payer OTHER, SELFPAY | PROVIDERS: Visit Provider Neurological Surgery ==